=== PATIENT | female | born 1935 | race Caucasian/White ===

== ENCOUNTER 2018-01-17 19:47 | Inpatient (IN) | payer MEDICARE, OTHER ==
[~2018-01-17] VITALS: Ht 160 cm; Wt 55.3 kg
[~2018-01-17 19:47] MED LIST: ACETAMINOPHEN325 M1 PO; BACLOFEN10 MG PO; CINNAMON500 MG PO; CITALOPRAM HBR40 MG PO; COLACE100 MG PO; CRANBERRY TABL1 EACH PO; HUMULIN N100 UNITS/ SQ; HUMULIN R100 UNIT/2 SQ; HYDROXYZINE HCL25 MG PO; LEVOTHYROXINE100 MCG PO; MECLIZINE HCL12.5 MG PO; NEXIUM20 M1 PO; OCUVITE SOFTGE1 EACH PO; PANTOPRAZOLE SO40 MG PO; RAMIPRIL5 MG PO; SYSTANE LIQUID15 ML
[2018-01-17] MEDS ORDERED: SODIUM CHLORIDE 0.9% 500ML 500 ML IV ONE (20:15)
[2018-01-17] MEDS ORDERED: PANTOPRAZOLE 40 MG 10ML VIAL IV ONE (20:15)
[2018-01-17 20:25] LABS: BASOPHILS % 0.4 % (0.0-1.0); EOSINOPHILS # (AUTO) 0.1 (0.0-0.4); EOSINOPHILS % 1.2 % (0.0-6.0); HEMATOCRIT 39.6 % (34.2-44.1); HEMOGLOBIN 12.6 g/dL (12.0-16.0); LYMPHOCYTES # (AUTO) 3.4 (1.0-3.2); LYMPHOCYTES % 40.2 % (18.0-39.1); MEAN CORPUSCULAR HEMOGLOBIN 29.8 pg (28-32); MEAN CORPUSCULAR HGB CONC 31.8 g/dL (31-35); MEAN CORPUSCULAR VOLUME 93.6 fL (81-99); MONOCYTES # (AUTO) 0.8 (0.2-0.8); MONOCYTES % 8.9 % (4.4-11.3); NEUTROPHILS # (AUTO) 4.2 (2.1-6.9); NEUTROPHILS % 48.9 % (38.7-80.0); PLATELET COUNT 183 x10e3/uL (140-360); RED BLOOD COUNT 4.23 x10e6/uL (3.6-5.1); RED CELL DISTRIBUTION WIDTH 13.4 % (11.7-14.4)
[2018-01-17 20:30] LABS: BILIRUBIN,URINE NEGATIVE (NEGATIVE); CLARITY,URINE CLOUDY (CLEAR); COLOR,URINE YELLOW (YELLOW); KETONES,URINE NEGATIVE (NEGATIVE); LEUKOCYTE ESTERASE ,URINE 2+ (NEGATIVE); NITRITE,URINE POSITIVE (NEGATIVE); PROTEIN,URINE DIPSTICK NEGATIVE (NEGATIVE); URINE UROBILINOGEN 0.2 mg/dL (0.2 - 1)
[2018-01-17 20:34] LABS: INR 1.16; PROTHROMBIN TIME 13.9 seconds (11.9-14.5)
[2018-01-17 20:39] LABS: BACTERIA,URINE MANY /HPF
[2018-01-17 20:43] LABS: ALANINE AMINOTRANSFERASE 13 IU/L (0-55); ALBUMIN/GLOBULIN RATIO 0.8 (0.8-2.0); ALKALINE PHOSPHATASE 101 IU/L (40-150); ANION GAP 12.2 mmol/L (8-16); BLOOD UREA NITROGEN 13 mg/dL (7-26); BUN/CREATININE RATIO 18 (6-25); CALCIUM 8.5 mg/dL (8.4-10.2); CARBON DIOXIDE 28 mmol/L (22-29); CHLORIDE 107 mmol/L (98-107); CREATINE KINASE 308 IU/L (29-168); CREATININE, SERUM 0.72 mg/dL (0.57-1.11); EST GLOMERULAR FILTRATION RATE > 60 ML/MIN (60-); GLUCOSE 81 mg/dL (74-118); MAGNESIUM 2.7 MG/DL (1.3-2.1); SODIUM 142 mmol/L (136-145)
[2018-01-17 20:50] LABS: B-TYPE NATRIURETIC PEPTIDE2 131.7 pg/mL (0-100)
[2018-01-17 20:51] LABS: POTASSIUM 5.2 mmol/L (3.5-5.1)
--- NOTE | 2018-01-17 21:23 | Diagnostic Imaging Report ---
EXAM: CHEST SINGLE (PORTABLE), AP 1 view INDICATION: Unresponsive COMPARISON: AP view of the chest June 14, 2015 FINDINGS: LINES/TUBES: None LUNGS: No consolidations or edema. Bibasilar atelectasis. PLEURA: No effusions or pneumothorax. HEART AND MEDIASTINUM: Normal size and contour. BONES AND SOFT TISSUES: No acute findings. Surgical clips right upper quadrant of the abdomen. IMPRESSION: No acute thoracic abnormality. Signed by: Dr. Laura Storey M.D. on 01/17/2018 9:20 PM
[2018-01-17] MEDS: CEFTRIAXONE SOD 1 GM VIAL IV SCH (21:26)
--- NOTE | 2018-01-17 21:51 | Diagnostic Imaging Report ---
History:Unresponsive Comparison studies:None Technique: Axial images were obtained from the skull base to the vertex. Coronal and sagittal images reconstructed from the axial data. Intravenous contrast: None Findings: Scalp/skull: No abnormalities. Extra-axial spaces: No masses. No fluid collections. Brain sulci: Mildly prominent. Ventricles: Mild compensatory dilatation. No hydrocephalus. Parenchyma: Few hypodensities in the supratentorial white matter are small vessel ischemic changes. No masses, hemorrhage, acute or chronic cortical vascular insults. Sellar/suprasellar region: No abnormalities. Craniocervical junction: Patent foramen magnum. No Chiari one malformation. Incidental findings: Atherosclerotic calcifications in the carotid siphons and vertebral arteries . Partial opacification of the lower most left mastoid air cells. Bilateral cataract surgery changes. Impression: No acute abnormalities. Chronic findings: 1. Mild generalized volume loss. 2. Mild supratentorial white matter small vessel ischemic changes. Signed by: DR Edenilson Reid M.D. on 01/17/2018 9:48 PM
[2018-01-17 22:18] LABS: FREE THYROXINE INDEX 2.4607 (1.4-3.8); THYROID STIMULATING HORMONE 0.484 uIU/mL (0.350-4.940)
[2018-01-17] MEDS ORDERED: ONDANSETRON HCL INJ 2 MG/ML VIAL IV PRN (22:45)
[2018-01-17] MEDS: SODIUM CHLORIDE 0.9% 1000ML 1,000 ML IV SCH (23:05)
[2018-01-18] VITALS (9 sets, daily range): BP systolic 119–175; BP diastolic 54–74
[2018-01-18] MEDS ORDERED: LANTUS 3ML100 UNITS/ SC (03:02)
[2018-01-18] MEDS ORDERED: ULTRAM50 MG PO (03:02)
[2018-01-18] MEDS ORDERED: CARAFATE1 GM/10 ML PO (03:02)
[2018-01-18] MEDS ORDERED: ZOFRAN ODT4 MG SL (03:02)
[2018-01-18] MEDS ORDERED: ALLEGRA ALLERGY60 MG PO (03:02)
[2018-01-18] MEDS: INSULIN REGULAR, HUMAN 100 UNIT/1 ML 3ML VIAL SQ SCH ×5 (06:00→21:35)
[2018-01-18] MEDS: DEXTROSE 50% SYRINGE 50 ML IV PRN ×2 (06:22→15:44)
[2018-01-18 06:41] LABS: BASOPHILS % 0.5 % (0.0-1.0); EOSINOPHILS # (AUTO) 0.1 (0.0-0.4); EOSINOPHILS % 1.7 % (0.0-6.0); HEMATOCRIT 37.1 % (34.2-44.1); HEMOGLOBIN 11.6 g/dL (12.0-16.0); LYMPHOCYTES # (AUTO) 3.2 (1.0-3.2); LYMPHOCYTES % 39.8 % (18.0-39.1); MEAN CORPUSCULAR HEMOGLOBIN 30.4 pg (28-32); MEAN CORPUSCULAR HGB CONC 31.3 g/dL (31-35); MEAN CORPUSCULAR VOLUME 97.1 fL (81-99); MONOCYTES # (AUTO) 0.7 (0.2-0.8); MONOCYTES % 8.3 % (4.4-11.3); NEUTROPHILS % 48.7 % (38.7-80.0); PLATELET COUNT 174 x10e3/uL (140-360); RED BLOOD COUNT 3.82 x10e6/uL (3.6-5.1); RED CELL DISTRIBUTION WIDTH 13.3 % (11.7-14.4)
[2018-01-18 07:05] LABS: CREATINE KINASE MB 4.5 ng/mL (0-5.0)
[2018-01-18 07:21] LABS: ALANINE AMINOTRANSFERASE 9 IU/L (0-55); ALBUMIN 2.6 g/dL (3.5-5.0); ALKALINE PHOSPHATASE 80 IU/L (40-150); ANION GAP 9.7 mmol/L (8-16); BLOOD UREA NITROGEN 12 mg/dL (7-26); BUN/CREATININE RATIO 16 (6-25); CALCIUM 7.9 mg/dL (8.4-10.2); CARBON DIOXIDE 28 mmol/L (22-29); CHLORIDE 108 mmol/L (98-107); CREATININE, SERUM 0.73 mg/dL (0.57-1.11); EST GLOMERULAR FILTRATION RATE > 60 ML/MIN (60-); GLUCOSE 218 mg/dL (74-118); POTASSIUM 3.7 mmol/L (3.5-5.1); SODIUM 142 mmol/L (136-145)
[2018-01-18] MEDS: SODIUM CHLORIDE 0.9% 1000ML 1,000 ML IV SCH (08:27)
[2018-01-18] MEDS: CEFTRIAXONE SOD 1 GM VIAL IV SCH ×2 (08:28→21:35)
[2018-01-18] MEDS ORDERED: LORATADINE 10 MG TAB PO PRN (09:00)
[2018-01-18] MEDS ORDERED: SODIUM CHLORIDE 0.45% 1,000 ML IV SCH (09:00)
[2018-01-18] MEDS: DOCUSATE SODIUM 100 MG CAP PO SCH (09:00)
--- NOTE | 2018-01-18 10:00 | History and Physical ---
PCP: Ezequiel Lawton MD The patient is a [facility]itentiary patient at [facility]. CHIEF COMPLAINT: Altered mental status, lethargic. HISTORY OF PRESENT ILLNESS: Patient is an 82-year-old female, a resident of [facility] with multiple medical problems. Came in with basically altered mental status and lethargic. The patient does have a urinary tract infection. The patient is very confused, but she is arousable. Patient is currently comfortable and not in any distress. Not much history can be obtained. Per family, the patient has been confused for the past few days. She does not have a Juarez catheter at the facility. Baseline with diabetes type 2, hypertension and recurrent urinary tract infection. PAST MEDICAL HISTORY: Allergic rhinitis, chronic claudication, dysphagia, reflux, hypothyroidism, generalized weakness, ambulatory dysfunction, diabetes type 2, recurrent urinary tract infections, chronic pain syndrome, history of recurrent falls, osteoarthritis of the extremities. PAST SURGICAL HISTORY: Complete hysterectomy, cholecystectomy, bleeding ulcer surgery, neck surgery. REVIEW OF SYSTEMS: Not able to obtain. The patient is confused. PHYSICAL EXAMINATION VITAL SIGNS: Temperature is 98. Blood pressure 134/74. Pulse rate 53. Respirations 20. GENERAL: The patient is lethargic. HEENT: Normocephalic, atraumatic, anicteric. NECK: Supple grossly. PULMONARY: Diminished breath sounds without any wheezing. CARDIOVASCULAR: Regular rate and rhythm. ABDOMEN: Soft. Juarez catheter in place. Positive bowel sounds. No distention. EXTREMITIES: No cyanosis or edema. NEUROLOGIC: Encephalopathy, arousable, but no gross focal deficit. LABORATORY: Sodium 142, potassium 3.7, chloride 108, bicarb 28, BUN 12, creatinine 0.7, glucose 218. WBC is 8.1, hemoglobin 12, hematocrit 37, platelets 174. Liver enzymes are unremarkable. Urinalysis: Trace blood, positive nitrate, 2+ leukocyte esterase, WBC 20, many bacteria. Urine culture is pending. Blood culture is pending. Brain CT and chest x-ray: No changes. No acute findings. IMPRESSION 1. Sepsis with urinary tract infection and confusion. 2. Encephalopathy from infection of urinary tract infection. 3. Dehydration. 4. Diabetes with hyperglycemia. 5. Multiple baseline problems. Continue with IV fluids. IV antibiotics. Supportive measures. Check urine culture and blood culture. Resume home medications if the patient is able to swallow. Aspiration precautions. Turn the patient. Skin care. Nursing care. Job#: [id number]
[2018-01-18] MEDS: SUCRALFATE 1 GM/10 ML SUSP PO SCH ×3 (10:30→21:35)
[2018-01-18] MEDS: RAMIPRIL 2.5 MG CAP PO SCH (10:30)
[2018-01-18] MEDS ORDERED: DEXTROSE 5%/0.45% SOD CHL 1,000 ML IV ONE (15:39)
[2018-01-18] MEDS: DEXTROSE 5%/0.45% SOD CHL 1,000 ML IV SCH (15:44)
[2018-01-18 18:29] LABS: CREATINE KINASE MB 5.8 ng/mL (0-5.0)
[2018-01-18] MEDS: INSULIN DETEMIR 100 UNIT/ML PEN SQ SCH (21:00)
[2018-01-19 01:40] VITALS: BP 160/74
[2018-01-19] MEDS: DEXTROSE 5%/0.45% SOD CHL 1,000 ML IV SCH ×2 (01:53→13:33)
[2018-01-19 05:25] VITALS: BP 138/68
[2018-01-19] MEDS: INSULIN REGULAR, HUMAN 100 UNIT/1 ML 3ML VIAL SQ SCH ×3 (06:00→18:43)
[2018-01-19] MEDS ORDERED: RAMIPRIL 5 MG CAP PO SCH (06:00)
[2018-01-19] MEDS: LEVOTHYROXINE SODIUM 100 MCG TAB PO SCH (06:44)
[2018-01-19 06:47] LABS: ANION GAP 9.5 mmol/L (8-16); BLOOD UREA NITROGEN 8 mg/dL (7-26); BUN/CREATININE RATIO 12 (6-25); CALCIUM 8.1 mg/dL (8.4-10.2); CARBON DIOXIDE 29 mmol/L (22-29); CHLORIDE 105 mmol/L (98-107); CREATININE, SERUM 0.65 mg/dL (0.57-1.11); EST GLOMERULAR FILTRATION RATE > 60 ML/MIN (60-); GLUCOSE 114 mg/dL (74-118); POTASSIUM 3.5 mmol/L (3.5-5.1); SODIUM 140 mmol/L (136-145)
[2018-01-19 06:54] LABS: BASOPHILS % 0.3 % (0.0-1.0); EOSINOPHILS # (AUTO) 0.1 (0.0-0.4); EOSINOPHILS % 2.1 % (0.0-6.0); HEMATOCRIT 37.3 % (34.2-44.1); LYMPHOCYTES # (AUTO) 1.3 (1.0-3.2); LYMPHOCYTES % 19.1 % (18.0-39.1); MEAN CORPUSCULAR HEMOGLOBIN 30.3 pg (28-32); MEAN CORPUSCULAR HGB CONC 32.2 g/dL (31-35); MEAN CORPUSCULAR VOLUME 94.2 fL (81-99); MONOCYTES # (AUTO) 0.7 (0.2-0.8); NEUTROPHILS # (AUTO) 4.4 (2.1-6.9); NEUTROPHILS % 66.9 % (38.7-80.0); PLATELET COUNT 195 x10e3/uL (140-360); RED BLOOD COUNT 3.96 x10e6/uL (3.6-5.1)
[2018-01-19 07:13] LABS: MAGNESIUM 1.7 MG/DL (1.3-2.1); PHOSPHORUS 2.9 MG/DL (2.3-4.7)
[2018-01-19 07:18] LABS: FOLATE 12.5 ng/mL (7.0-15.4)
[2018-01-19 07:35] LABS: THYROID STIMULATING HORMONE 1.696 uIU/mL (0.350-4.940)
[2018-01-19 08:00] VITALS: BP 143/63
[2018-01-19] MEDS: CEFTRIAXONE SOD 1 GM VIAL IV SCH ×2 (08:06→21:23)
[2018-01-19] MEDS: SUCRALFATE 1 GM/10 ML SUSP PO SCH ×4 (08:06→21:23)
[2018-01-19] MEDS: DOCUSATE SODIUM 100 MG CAP PO SCH (08:06)
[2018-01-19] MEDS: RAMIPRIL 2.5 MG CAP PO SCH (08:06)
[2018-01-19] MEDS: CYANOCOBALAMIN INJ 1,000 MCG/ML VIAL IM SCH (09:42)
[2018-01-19 12:10] VITALS: BP 156/69
[2018-01-19 15:58] VITALS: BP 193/72
[2018-01-19] MEDS: ENOXAPARIN 30 MG/0.3 ML SYR SC SCH (17:56)
[2018-01-19 20:00] VITALS: BP 154/67
[2018-01-19] MEDS: TRAMADOL HCL 50 MG TAB PO PRN (21:09)
[2018-01-19] MEDS: INSULIN DETEMIR 100 UNIT/ML PEN SQ SCH (21:15)
[2018-01-19] MEDS: ACETAMINOPHEN 325 MG TAB PO PRN (23:30)
[2018-01-20] VITALS (7 sets, daily range): BP systolic 107–189; BP diastolic 52–83
[2018-01-20] MEDS: DEXTROSE 5%/0.45% SOD CHL 1,000 ML IV SCH ×2 (01:07→10:12)
[2018-01-20 05:30] LABS: BASOPHILS % 0.2 % (0.0-1.0); EOSINOPHILS % 0.6 % (0.0-6.0); HEMATOCRIT 35.4 % (34.2-44.1); HEMOGLOBIN 11.3 g/dL (12.0-16.0); LYMPHOCYTES # (AUTO) 1.2 (1.0-3.2); LYMPHOCYTES % 23.7 % (18.0-39.1); MEAN CORPUSCULAR HEMOGLOBIN 30.3 pg (28-32); MEAN CORPUSCULAR HGB CONC 31.9 g/dL (31-35); MEAN CORPUSCULAR VOLUME 94.9 fL (81-99); MONOCYTES % 20.2 % (4.4-11.3); NEUTROPHILS # (AUTO) 2.8 (2.1-6.9); NEUTROPHILS % 53.9 % (38.7-80.0); PLATELET COUNT 166 x10e3/uL (140-360); RED BLOOD COUNT 3.73 x10e6/uL (3.6-5.1); RED CELL DISTRIBUTION WIDTH 12.8 % (11.7-14.4)
[2018-01-20 05:55] LABS: ANION GAP 8.2 mmol/L (8-16); BLOOD UREA NITROGEN < 5 mg/dL (7-26); CARBON DIOXIDE 31 mmol/L (22-29); CHLORIDE 108 mmol/L (98-107); CREATININE, SERUM 0.65 mg/dL (0.57-1.11); EST GLOMERULAR FILTRATION RATE > 60 ML/MIN (60-); GLUCOSE 122 mg/dL (74-118); POTASSIUM 3.2 mmol/L (3.5-5.1); SODIUM 144 mmol/L (136-145)
[2018-01-20 05:56] LABS: BUN/CREATININE RATIO 8 (6-25)
[2018-01-20] MEDS: INSULIN REGULAR, HUMAN 100 UNIT/1 ML 3ML VIAL SQ SCH ×4 (06:00→18:00)
[2018-01-20] MEDS: LEVOTHYROXINE SODIUM 100 MCG TAB PO SCH (06:08)
[2018-01-20] MEDS: RAMIPRIL 2.5 MG CAP PO SCH (08:10)
[2018-01-20] MEDS: SUCRALFATE 1 GM/10 ML SUSP PO SCH ×4 (08:10→21:08)
[2018-01-20] MEDS: CYANOCOBALAMIN INJ 1,000 MCG/ML VIAL IM SCH (08:10)
[2018-01-20] MEDS: DOCUSATE SODIUM 100 MG CAP PO SCH (08:10)
[2018-01-20] MEDS: CEFTRIAXONE SOD 1 GM VIAL IV SCH ×2 (08:15→21:08)
[2018-01-20] MEDS ORDERED: POTASSIUM CHLORIDE 10 MEQ TABCR PO NR (09:00)
[2018-01-20] MEDS: ENOXAPARIN 30 MG/0.3 ML SYR SC SCH (17:47)
[2018-01-20] MEDS: INSULIN DETEMIR 100 UNIT/ML PEN SQ SCH (21:00)
[2018-01-20] MEDS: TRAMADOL HCL 50 MG TAB PO PRN (21:46)
[2018-01-20] MEDS: ACETAMINOPHEN 325 MG TAB PO PRN (23:40)
[2018-01-21] VITALS: BP 174/74
[2018-01-21] MEDS: INSULIN REGULAR, HUMAN 100 UNIT/1 ML 3ML VIAL SQ SCH ×3 (00:20→12:00)
[2018-01-21 04:00] VITALS: BP 166/73
[2018-01-21] MEDS: DEXTROSE 5%/0.45% SOD CHL 1,000 ML IV SCH (04:31)
[2018-01-21 05:48] LABS: ANION GAP 10.1 mmol/L (8-16); BLOOD UREA NITROGEN 5 mg/dL (7-26); BUN/CREATININE RATIO 8 (6-25); CARBON DIOXIDE 30 mmol/L (22-29); CHLORIDE 107 mmol/L (98-107); CREATININE, SERUM 0.65 mg/dL (0.57-1.11); EST GLOMERULAR FILTRATION RATE > 60 ML/MIN (60-); GLUCOSE 94 mg/dL (74-118); MAGNESIUM 1.8 MG/DL (1.3-2.1); POTASSIUM 3.1 mmol/L (3.5-5.1); SODIUM 144 mmol/L (136-145)
[2018-01-21 06:20] LABS: PHOSPHORUS 2.4 MG/DL (2.3-4.7)
[2018-01-21] MEDS: LEVOTHYROXINE SODIUM 100 MCG TAB PO SCH (06:20)
[2018-01-21 08:00] VITALS: BP 180/86
[2018-01-21] MEDS: RAMIPRIL 2.5 MG CAP PO SCH (08:26)
[2018-01-21] MEDS: CEFTRIAXONE SOD 1 GM VIAL IV SCH (08:26)
[2018-01-21] MEDS: DOCUSATE SODIUM 100 MG CAP PO SCH (08:26)
[2018-01-21] MEDS: CYANOCOBALAMIN INJ 1,000 MCG/ML VIAL IM SCH (08:26)
[2018-01-21] MEDS: SUCRALFATE 1 GM/10 ML SUSP PO SCH ×2 (08:26→11:30)
[2018-01-21 08:53] VITALS: BP 180/86
[2018-01-21] MEDS ORDERED: POTASSIUM CHLORIDE 10 MEQ TABCR PO NR (09:45)
[2018-01-21] MEDS ORDERED: POTASSIUM PHOSPHATE 20 MM in SODIUM CHLORIDE 0.9% 250ML 250 ML IV ONE (10:00)
[2018-01-21] MEDS ORDERED: rocephin IV (10:05)
--- NOTE | 2018-01-21 10:15 | Discharge Summary ---
PRIMARY CARE PHYSICIAN: Ezequiel Lawton MD FINAL DIAGNOSES 1. Sepsis with urinary tract infection and confusion associated with encephalopathy from infection. 2. Acute delirium secondary to above on baseline dementia. 3. Status post dehydration. 4. Baseline diabetes type 2 and hypoglycemia. 5. Multiple chronic baseline problems including ambulatory dysfunction secondary to osteoarthritis and degenerative lumbar spine disease. SUMMARY: Patient is an 82-year-old female, a resident of a senior care, who came in with confusion, lethargic, difficult to arouse associated with delirium and encephalopathic due to basically urinary tract infection. The patient had a urine culture that grew out to be Providencia stuartii. It is sensitive to Azactam, ceftazidime, Rocephin, cefepime but resistant to cefuroxime, Cipro, Levaquin, and Macrodantin. The patient is on Rocephin 1 gram q.12. On admission, the patient was dehydrated. She did have some loose stool, but much improved. Potassium was 5.2 on admission. Her blood sugar was stable at 81. The patient was not eating at the time but now she is doing much better. She is stable. She has been eating. TSH is 0.48. Urinalysis shows significant 2+ leukocyte esterase, many bacteria, positive nitrate, cloudy urine. She did have urinary retention. Juarez catheter was placed and much improved now. The urinary bladder scan was only 60 mL after the Juaerz catheter was removed. Patient doing much better. She will have potassium phosphate replaced. She will go back to the senior care with 7 days of Rocephin 1 g daily and B12 injection. Her B12 level was very significantly low as well. Her level was 91. Patient has received 1,000 mcg IM daily for 3 days. Recommend every 2 weeks for 3 doses and then every month. At this time the patient is stable for discharge. Please review the medication reconciliation and the instructions that were given. Job#: [id number]
[2018-01-21] MEDS: ACETAMINOPHEN 325 MG TAB PO PRN (10:28)
[2018-01-21 12:00] VITALS: BP 176/76
[2018-01-21] MEDS: TRAMADOL HCL 50 MG TAB PO PRN (14:01)
== END 2018-01-21 16:13 | DRG 871 ==
LOC: ER 19:47 → ERHOLD 22:37 → MED/SURG 01-18 00:25
PROVIDERS: ADMIT Internal Medicine; ATTEND Internal Medicine
DX: A41.9 Sepsis, unspecified organism (principal); G93.41 Metabolic encephalopathy; N39.0 Urinary tract infection, site not specified; F05 Delirium due to known physiological condition; B96.89 Other specified bacterial agents as the cause of diseases classified elsewhere; F03.90 Unspecified dementia, unspecified severity, without behavioral disturbance, psychotic disturbance, mood disturbance, and anxiety; E86.0 Dehydration; E11.65 Type 2 diabetes mellitus with hyperglycemia; I10 Essential (primary) hypertension; E03.9 Hypothyroidism, unspecified; R26.9 Unspecified abnormalities of gait and mobility; M47.816 Spondylosis without myelopathy or radiculopathy, lumbar region; K21.9 Gastro-esophageal reflux disease without esophagitis; E87.6 Hypokalemia; E53.8 Deficiency of other specified B group vitamins; G89.4 Chronic pain syndrome; J30.9 Allergic rhinitis, unspecified; F41.8 Other specified anxiety disorders; Z79.4 Long term (current) use of insulin; Z88.2 Allergy status to sulfonamides; Z91.041 Radiographic dye allergy status; Z88.0 Allergy status to penicillin; Z91.013 Allergy to seafood
CPT/HCPCS: 36415; 51700; 70450; 71045; 80048; 80053; 81001; 82140; 82550; 82553; 82607; 82746; 82948; 83036; 83605; 83735; 83880; 84100; 84436; 84443; 84479; 84484; 85025; 85610; 85730; 87040; 87086; 87186; 93005; 96361; 99284; J0696; J1650; J3420; J7030; J7040; J7050; J7799

== ENCOUNTER 2018-07-23 16:35 | Inpatient (IN) | payer MEDICARE, OTHER ==
[~2018-07-23] VITALS: Ht 152.4 cm; Wt 61.2 kg
[~2018-07-23 16:35] MED LIST changes: +ALLEGRA ALLERGY60 MG PO; +CARAFATE1 GM/10 ML PO; +LANTUS 3ML100 UNITS/ SC; +ULTRAM50 MG PO; +ZOFRAN ODT4 MG SL; +rocephin IV
[2018-07-23 17:19] LABS: BASOPHILS % 0.2 % (0.0-1.0); EOSINOPHILS # (AUTO) 0.1 (0.0-0.4); EOSINOPHILS % 0.4 % (0.0-6.0); HEMATOCRIT 37.4 % (34.2-44.1); HEMOGLOBIN 11.9 g/dL (12.0-16.0); LYMPHOCYTES # (AUTO) 2.9 (1.0-3.2); LYMPHOCYTES % 14.4 % (18.0-39.1); MEAN CORPUSCULAR HGB CONC 31.8 g/dL (31-35); MEAN CORPUSCULAR VOLUME 94.2 fL (81-99); MONOCYTES # (AUTO) 1.2 (0.2-0.8); MONOCYTES % 5.8 % (4.4-11.3); NEUTROPHILS # (AUTO) 15.8 (2.1-6.9); NEUTROPHILS % 78.7 % (38.7-80.0); PLATELET COUNT 218 x10e3/uL (140-360); RED BLOOD COUNT 3.97 x10e6/uL (3.6-5.1)
[2018-07-23 17:24] LABS: INR 1.3; PROTHROMBIN TIME 17.3 seconds (11.9-14.5)
[2018-07-23 17:25] LABS: PARTIAL THROMBOPLASTIN TIME 71.2 seconds (23.8-35.5)
[2018-07-23 17:31] LABS: ALBUMIN 2.5 g/dL (3.5-5.0); ALBUMIN/GLOBULIN RATIO 0.7 (0.8-2.0); ALKALINE PHOSPHATASE 76 IU/L (40-150); ANION GAP 12.5 mmol/L (8-16); BLOOD UREA NITROGEN 15 mg/dL (7-26); BUN/CREATININE RATIO 20 (6-25); CALCIUM 7.9 mg/dL (8.4-10.2); CARBON DIOXIDE 27 mmol/L (22-29); CHLORIDE 104 mmol/L (98-107); CREATININE, SERUM 0.76 mg/dL (0.57-1.11); EST GLOMERULAR FILTRATION RATE > 60 ML/MIN (60-); GLUCOSE 98 mg/dL (74-118); POTASSIUM 3.5 mmol/L (3.5-5.1); SODIUM 140 mmol/L (136-145)
[2018-07-23 17:37] LABS: ALANINE AMINOTRANSFERASE < 6 IU/L (0-55)
[2018-07-23 17:46] LABS: MAGNESIUM 2.2 MG/DL (1.3-2.1)
[2018-07-23] MEDS ORDERED: ALBUTEROL SULF 0.083% NEB SOLN 3 ML NEB NEB STA (17:58)
[2018-07-23] MEDS ORDERED: IPRATROPIUM BROMIDE 0.02% 2.5 ML NEB NEB ONE (18:00)
[2018-07-23 18:10] LABS: BILIRUBIN,URINE NEGATIVE (NEGATIVE); CLARITY,URINE HAZY (CLEAR); COLOR,URINE YELLOW (YELLOW); KETONES,URINE NEGATIVE (NEGATIVE); LEUKOCYTE ESTERASE ,URINE 2+ (NEGATIVE); NITRITE,URINE POSITIVE (NEGATIVE); PROTEIN,URINE DIPSTICK TRACE (NEGATIVE); URINE UROBILINOGEN 0.2 mg/dL (0.2 - 1)
--- NOTE | 2018-07-23 18:11 | Diagnostic Imaging Report ---
EXAMINATION: CHEST SINGLE (PORTABLE) COMPARISON: Chest x-ray 01/17/2018 INDICATION: ^SEPSIS ^[id number] ^1721 ^Y DISCUSSION: Frontal view of the chest obtained at 1746 hours. HEART AND MEDIASTINUM: The cardiomediastinal silhouette is unremarkable. LINES: None. LUNGS: Mildly hyperinflated. No mass or infiltrate. No pulmonary edema PLEURA: No pleural effusion or pneumothorax. BONES AND SOFT TISSUES: No focal osseous lesion. The soft tissues are normal. IMPRESSION: Mild pulmonary hyperinflation. No acute cardiopulmonary process. Signed by: Dr. Marjorie Pearson MD on 07/23/2018 6:08 PM
[2018-07-23 18:12] LABS: WBC,URINE (MAN) >50 /HPF (0-5)
[2018-07-23 18:13] LABS: AMORPHOUS SEDIMENT,URINE FEW (FEW); BACTERIA,URINE MANY /HPF; EPITHELIAL CELLS,URINE FEW /LPF; MUCUS,URINE MODERATE (RARE)
--- NOTE | 2018-07-23 19:09 | NUR ---
Walking rounds with ELISHA Corbett.
--- NOTE | 2018-07-23 19:31 | NUR ---
I spoke with Dr Lawton for admission
[2018-07-23] MEDS ORDERED: SODIUM CHLORIDE 0.9% 1000ML 1,000 ML IV ONE (20:00)
[2018-07-23] MEDS ORDERED: IPRATROPIUM BROMIDE 0.02% 2.5 ML NEB NEB PRN (20:00)
[2018-07-23] MEDS ORDERED: DEXTROSE 50% SYRINGE 50 ML IV PRN (20:00)
[2018-07-23] MEDS ORDERED: ONDANSETRON HCL INJ 2MG/ML 2ML 2 MG/ML VIAL IV PRN (20:00)
[2018-07-23 21:14] VITALS: BP 148/62
[2018-07-23 21:30] VITALS: BP 148/62
[2018-07-23] MEDS: CEFTRIAXONE SOD 1 GM/NS 50 ML 50 ML IV SCH (21:31)
[2018-07-23] MEDS: INSULIN LISPRO 100 UNIT/1 ML 3ML VIAL SQ SCH (21:31)
--- NOTE | 2018-07-23 22:52 | History and Physical ---
I was called by the patient's [facility] this afternoon at approximately 3:30 and advised that the patient had been sick all day with fever and malaise. The patient has had a history of severe urosepsis and was referred to the emergency room. There, she was seen by Dr. Tolentino, emergency room physician, who called regarding leukemoid reaction and fever, urinary tract infection and pulmonary congestion. The patient denies headache or visual disturbance. She denies sore throat. No chest pain. She has had a cough all day according to her family, dry cough. No chest pain as mentioned. The patient denies nausea, vomiting, or diarrhea. She notes some dysuria for 2 days. The patient is not ambulatory. PAST MEDICAL HISTORY: History has also included allergic rhinitis, spinal stenosis with chronic bilateral leg weakness, GERD, hypothyroidism, diabetes type 2, and degenerative joint disease. SURGICAL HISTORY: Hysterectomy, cholecystectomy, surgery for bleeding ulcer, surgery for spinal stenosis of lumbar spine. FAMILY HISTORY: Denies contributory family history. ALLERGIES: PER OLD RECORD INCLUDE PENICILLIN, SULFA, AND IODINE. THE PATIENT HAS TOLERATED CEPHALOSPORIN PREVIOUSLY PER ER REPORT. The patient relates she has had prior neck surgery. No tobacco or alcohol. See also multiple prior stays here. The patient was given Tylenol prior to referral here. When I was called at 3:30 this afternoon, the patient's fever was 100.6 according to the detention. PHYSICAL EXAMINATION VITAL SIGNS: Currently pulse is 63 and regular; respiratory rate is 20, not labored; blood pressure 134/64 on arrival; O2 saturation has varied in the ER from 91 to 100. HEENT: No icterus or pallor. Pupils are round and reactive. EOMs full. Back of throat poorly seen. NECK: Supple. Carotids are palpable. No palpable goiter. PULMONARY: Auscultation generalized with rales. CARDIAC: Obscure cardiac sounds, S1 and S2 soft. ABDOMEN: Soft. Bowel sounds are normal. Old scars. No suprapubic or flank tenderness. EXTREMITIES: Free of edema, clubbing, or cyanosis. Peripheral pulses are present. Strength is very poor in the lower extremities with reduced DTRs. LABS: White count is 20,000, hemoglobin is 11.9 with normal indices. Platelet count normal at 218,000. PTT elevated at 71. INR is 1.3. Urinalysis reveals greater than 50 white cells per high power field. Dipstick is positive for nitrites. Positive for leukocyte esterase. Influenza type A and B antigens are negative. Cardiac enzymes are normal. Brain natriuretic peptide 168 (less than 100 is normal). Albumin 2.5, globulin 3.6. Urine and blood cultures are being sent. Chest x-ray; impression, mild pulmonary hyperinflation per Dr. Marjorie Pearson, radiologist here. CURRENT IMPRESSION 1. Acute febrile illness. 2. Urinary tract infection. 3. History of urosepsis previously. 4. Acute bronchitis. 5. Pulmonary hyperinflation. Multiple chronic medical illnesses as mentioned above including spinal stenosis, diabetes mellitus (admission glucose 98), allergic rhinitis, GERD, hypothyroidism, degenerative joint disease. Current plans are to assure hydration. Control blood pressure and diabetes. Treat the patient's bronchitis and urinary tract infection. See also initial orders. Further treatment pending database and course. Job#: [id number] GAGAN
[2018-07-23] MEDS: AZITHROMYCIN 500MG/NS 250 ML 250 ML IV SCH (23:00)
--- NOTE | 2018-07-23 23:00 | NUR ---
Patient in bed. AAOx2-3. Continues pulse ox at 92-93% on 2-3L n/c. Patient in no noted distress or discomfort. IV intact. Patient depend changed and cleaned. Patient given snack. Consumed 100% of meal. Continue monitor.
[2018-07-24] VITALS (16 sets, daily range): BP systolic 88–159; BP diastolic 26–81
--- NOTE | 2018-07-24 01:00 | NUR ---
Patient pulled out IV. Pressure dressing applied. Restarted 22G to left FA. Patient tolerated well.
[2018-07-24 02:46] LABS: CREATINE KINASE MB 1.2 ng/mL (0-5.0)
--- NOTE | 2018-07-24 04:00 | NUR ---
Patient resting quitly with no noted c/o at this time.
[2018-07-24 06:37] LABS: BASOPHILS % 0.1 % (0.0-1.0); EOSINOPHILS # (AUTO) 0.1 (0.0-0.4); HEMATOCRIT 35.1 % (34.2-44.1); HEMOGLOBIN 10.9 g/dL (12.0-16.0); LYMPHOCYTES # (AUTO) 1.3 (1.0-3.2); LYMPHOCYTES % 8.9 % (18.0-39.1); MEAN CORPUSCULAR HEMOGLOBIN 29.8 pg (28-32); MEAN CORPUSCULAR HGB CONC 31.1 g/dL (31-35); MEAN CORPUSCULAR VOLUME 95.9 fL (81-99); MONOCYTES % 6.7 % (4.4-11.3); NEUTROPHILS # (AUTO) 11.7 (2.1-6.9); NEUTROPHILS % 82.7 % (38.7-80.0); PLATELET COUNT 192 x10e3/uL (140-360); RED BLOOD COUNT 3.66 x10e6/uL (3.6-5.1)
[2018-07-24 07:07] LABS: ALANINE AMINOTRANSFERASE 7 IU/L (0-55); ALBUMIN 2.1 g/dL (3.5-5.0); ALBUMIN/GLOBULIN RATIO 0.8 (0.8-2.0); ALKALINE PHOSPHATASE 68 IU/L (40-150); ANION GAP 9.3 mmol/L (8-16); BLOOD UREA NITROGEN 14 mg/dL (7-26); BUN/CREATININE RATIO 23 (6-25); CARBON DIOXIDE 26 mmol/L (22-29); CHLORIDE 109 mmol/L (98-107); CREATININE, SERUM 0.62 mg/dL (0.57-1.11); EST GLOMERULAR FILTRATION RATE > 60 ML/MIN (60-); GLUCOSE 116 mg/dL (74-118); POTASSIUM 3.3 mmol/L (3.5-5.1); SODIUM 141 mmol/L (136-145)
[2018-07-24 07:18] LABS: CALCIUM 6.7 mg/dL (8.4-10.2)
[2018-07-24] MEDS: INSULIN LISPRO 100 UNIT/1 ML 3ML VIAL SQ SCH ×4 (07:30→21:25)
--- NOTE | 2018-07-24 08:02 | NUR ---
PT CRITICAL LAB FOR CAECUM 6.7 AND POTASSIUM 3.[address] LOPEZ NO NEW ORDERS AT THIS TIME. RESP THERAPY NOTIFIED OF PT 02 LEVEL 88 AWAITING .
[2018-07-24] MEDS: ALBUTEROL SULF 0.083% NEB SOLN 3 ML NEB NEB PRN ×2 (08:08→21:35)
--- NOTE | 2018-07-24 08:29 | NUR ---
RESP THERAPY ADMINISTERED BREATHING TX, 02 SAT 97%.
[2018-07-24] MEDS: CEFTRIAXONE SOD 1 GM/NS 50 ML 50 ML IV SCH ×2 (09:51→21:25)
[2018-07-24] MEDS: AZITHROMYCIN 500MG/NS 250 ML 250 ML IV SCH (10:20)
--- NOTE | 2018-07-24 10:26 | NUR ---
PT NOTED ON VENTURI MASK AT 15% PLACED BY RESP THERAPIST, DR LOPEZ NOTIFIED, ORDERS FOR A CONSULT WITH DR. PARRA, STAT ABGS, STAT SOLUCORTEL 100MG IV AND POTASSIUM 10MEQ PO NOW.
--- NOTE | 2018-07-24 10:43 | NUR ---
DR STOKES CALLED FOR THE CONSULT AND WANTS PT TRANSFERRED TO ICU. ABGS RESULTS PENDING, PHARMACY TO VERIFIED MEDICATIONS.
[2018-07-24] MEDS ORDERED: HYDROCORTISONE SOD SUCCINATE 100 MG VIAL IV ONE (11:00)
[2018-07-24] MEDS ORDERED: POTASSIUM CHLORIDE 10MEQ EA PO ONE (11:00)
[2018-07-24] MEDS: RAMIPRIL 2.5 MG CAP PO SCH (11:08)
[2018-07-24 11:11] LABS: ABG HCO3 25 mmol/L (23-28); ABG PCO2 43 mmHg (41-51); ABG PH 7.38 (7.31-7.41); ABG PO2 72 mmHg (80-105)
--- NOTE | 2018-07-24 11:53 | NUR ---
ABG RESULTS REPORTED TO DR STOKES ORDERS FOR PT TO STILL BE TRANSFERRED TO ICU. REPORT CALLED IN TO NURSE WHO WILL BE TAKING CARE FOR PT IN ROOM 194. DR LOPEZ ALSO UPDATED OF PT STATUS AND ABG RESULTS
--- NOTE | 2018-07-24 12:14 | NUR ---
transported patient to ICU via bed, no imcu bed available at this time. Patient monitored on continuous pulse ox
[2018-07-24] MEDS ORDERED: FUROSEMIDE INJ 10 MG/ML 2 ML VIAL IV ONE (13:00)
--- NOTE | 2018-07-24 14:40 | Consultation ---
DATE OF CONSULTATION: July 24, 2018 PULMONARY CONSULTATION REASON FOR THE CONSULT: Shortness of breath. HPI: Ms. Barlow is an 82-year-old female. She was admitted under Dr. Lawton's service for fever and malaise. I was called by the RN because patient was hypoxic and patient was desaturating to 84% on 2 liters. Patient was put on 7 or 8 liters. An ABG was done on 50% Ventimask with a pO2 of 72 and pCO2 of 43. Patient reports that she is having some difficulty taking deep breaths. She is awake, alert, oriented, and following commands. She has never smoked in her life. I have reviewed her chest x-ray. It is not showing any evidence of infiltrates. Patient is mostly wheelchair bound and does not walk much according to what she told me. REVIEW OF SYSTEMS GENERAL: Denies any fever or chills. HEAD: Denies any head trauma. ENT: Denies any earache. CVS: Denies any chest pain. RESPIRATORY: Shortness of breath. GI: Denies any nausea or vomiting. MUSCULOSKELETAL: Denies any arthralgias or myalgias. NEURO: Denies any focal weakness. The rest of the review systems is negative except as in HPI. PAST MEDICAL HISTORY: Per the chart, history of hypertension, hypothyroidism, type 2 diabetes. She is mostly in the wheelchair. At home, patient is on Ramipril and also has hypothyroidism. PAST SURGICAL HISTORY: Hysterectomy, cholecystectomy, surgery for spinal stenosis. ALLERGIES: PENICILLIN, SULFA, IODINE. PHYSICAL EXAMINATION VITAL SIGNS: Temperature 97.4, pulse of 56, blood pressure 156/67, 148/62. Respiratory rate is 18 to 20 per minute. O2 sat, I checked myself in the room on 3 liters, she was saturating 93%. She was on 7 liters when I went into the room. GENERAL: She does not appear to be in distress. She is awake and alert and following commands. HEENT: Head atraumatic, normocephalic. Oral mucosa is dry. NECK: Supple. No JVD. Thyroid not enlarged. CHEST: Patient has crackles on the bases but no wheezing. HEART: S1, S2 audible. ABDOMEN: Soft, nontender. EXTREMITIES: No clubbing, cyanosis, or edema. NEUROLOGICAL: She is awake and alert. LABS: Sodium 141, potassium 3.3, chloride 109, BUN 14, creatinine 0.62, calcium was 6.7, albumin is 2.1 and 2.5. Troponin 0.067. Her BNP, when she came in, was 168. Chest x-ray was from 07/23/2018 and showing mild congestion and some hilar engorgement. There is no new x-ray. Urinalysis which was done when she came in showed many bacteria, more than 50 wbc's. Blood cultures have been negative. ASSESSMENT/PLAN: Ms. Barlow is an 82-year-old female. She presented to the emergency room with generalized malaise, fever. She lives at [facility]. She is in the wheelchair. I was consulted for hypoxia. Patient's ABG was showing PaO2 of 72, this was done 50% Ventimask and had significant AA gradient. However, she was not hypercapnic. She is awake and alert and no mental status changes. She has no renal failure. Leukocytosis is resolving with IV Rocephin. She was on IV fluids, IV normal saline at 75 mL an hour since she has been in the hospital. Her BNP was in 160s when she came in. IMPRESSION 1. Hypoxia could be due to fluid overload as patient was on IV fluids. I will do a chest x-ray, and we will give a dose of Lasix and follow. However, patient has history of being bedbound and in the chair, so we will consider ruling out pulmonary embolism. We will do a computed tomography chest with contrast. 2. Urinary tract infection. Patient is already on the antibiotics. 3. Hypocalcemia. Albumin is 2.1, so she is somewhat hypocalcemic, currently stable from that standpoint. 4. History of hypertension, currently seems to be somewhat uncontrolled. Patient is on Ramipril. 5. Move the patient to IM. Since there is no bed in [facility], she will be ending up in ICU. We will follow her closely. Critical care time spent, 50 minutes. Job#: [id number] LAURE
[2018-07-24] MEDS: SUCRALFATE 1 GM/10 ML SUSP PO SCH ×2 (17:03→22:30)
--- NOTE | 2018-07-24 17:21 | NUR ---
CT not done due to iodine allergy, Dr Ba is aware.
[2018-07-24] MEDS ORDERED: HEPARIN SOD (PORCINE) 1000 UNIT/ML SDV IV ONE (21:00)
[2018-07-24] MEDS: VANCOMYCIN 250MG/5ML ORAL SOLN PO SCH (21:25)
[2018-07-24] MEDS ORDERED: HEPARIN SOD (PORCINE) 5,000 UNIT/ML VIAL ONE (21:25)
[2018-07-25] VITALS (10 sets, daily range): BP systolic 93–150; BP diastolic 35–66
[2018-07-25] MEDS: VANCOMYCIN 250MG/5ML ORAL SOLN PO SCH ×4 (00:55→17:41)
[2018-07-25 04:54] LABS: BASOPHILS % 0.2 % (0.0-1.0); EOSINOPHILS # (AUTO) 0.1 (0.0-0.4); EOSINOPHILS % 0.6 % (0.0-6.0); HEMATOCRIT 35.7 % (34.2-44.1); LYMPHOCYTES # (AUTO) 2.7 (1.0-3.2); LYMPHOCYTES % 21.9 % (18.0-39.1); MEAN CORPUSCULAR HEMOGLOBIN 29.3 pg (28-32); MEAN CORPUSCULAR HGB CONC 30.8 g/dL (31-35); MEAN CORPUSCULAR VOLUME 95.2 fL (81-99); MONOCYTES # (AUTO) 0.9 (0.2-0.8); MONOCYTES % 7.5 % (4.4-11.3); NEUTROPHILS # (AUTO) 8.5 (2.1-6.9); NEUTROPHILS % 68.7 % (38.7-80.0); PLATELET COUNT 213 x10e3/uL (140-360); RED BLOOD COUNT 3.75 x10e6/uL (3.6-5.1); RED CELL DISTRIBUTION WIDTH 13.9 % (11.7-14.4)
[2018-07-25 05:12] LABS: ANION GAP 11.3 mmol/L (8-16); BLOOD UREA NITROGEN 15 mg/dL (7-26); BUN/CREATININE RATIO 21 (6-25); CARBON DIOXIDE 28 mmol/L (22-29); CHLORIDE 108 mmol/L (98-107); CREATININE, SERUM 0.72 mg/dL (0.57-1.11); EST GLOMERULAR FILTRATION RATE > 60 ML/MIN (60-); GLUCOSE 92 mg/dL (74-118); POTASSIUM 3.3 mmol/L (3.5-5.1); SODIUM 144 mmol/L (136-145)
[2018-07-25 05:15] LABS: CALCIUM 7.9 mg/dL (8.4-10.2)
[2018-07-25] MEDS: LEVOTHYROXINE SODIUM 100 MCG TAB PO SCH (05:35)
[2018-07-25] MEDS: INSULIN LISPRO 100 UNIT/1 ML 3ML VIAL SQ SCH ×4 (07:30→22:15)
[2018-07-25] MEDS ORDERED: DOCUSATE SODIUM 100 MG CAP PO SCH (09:00)
[2018-07-25] MEDS ORDERED: SODIUM CHLORIDE 0.9% 250ML 250 ML ONE (09:45)
[2018-07-25] MEDS: RAMIPRIL 2.5 MG CAP PO SCH (09:46)
[2018-07-25] MEDS: CEFTRIAXONE SOD 1 GM/NS 50 ML 50 ML IV SCH ×2 (09:46→22:15)
[2018-07-25] MEDS: SUCRALFATE 1 GM/10 ML SUSP PO SCH ×4 (09:46→22:15)
[2018-07-25] MEDS: AZITHROMYCIN 500MG/NS 250 ML 250 ML IV SCH (09:46)
[2018-07-25] MEDS ORDERED: POTASSIUM CHLORIDE 20 MEQ TAB CR PO ONE (10:00)
--- NOTE | 2018-07-25 10:06 | Diagnostic Imaging Report ---
EXAMINATION: CHEST SINGLE (PORTABLE) COMPARISON: Chest x-ray 07/23/2018 INDICATION: ^sob ^[id number] ^0938 DISCUSSION: Frontal view of the chest obtained at 0900 hours. The patient's chin overlies the upper chest. HEART AND MEDIASTINUM: Stable mild cardiomegaly and aortic ectasia LINES: None. LUNGS: The lungs are diffusely hyperinflated consistent with COPD. There is new right basilar airspace disease. Streaky left basilar airspace opacity has developed. Vascular markings are prominent. PLEURA: No pleural effusion or pneumothorax. BONES AND SOFT TISSUES: No focal osseous lesion. The soft tissues are normal. IMPRESSION: 1. New right basilar airspace opacity suggestive of pneumonia. Left basilar airspace opacity may be the result of atelectasis or pneumonia. 2. Cardiomegaly and mild vascular congestion. Signed by: Dr. Marjorie Pearson MD on 07/25/2018 10:02 AM
--- NOTE | 2018-07-25 11:16 | NUR ---
WOUND CARE CONSULTATION. 82 YEAR OLD FEMALE ADMITTED TO [facility] WITH DX OF BRONCHITIS, HEAD TO TOE SKIN ASSESSMENT PERFORMED TODAY. PT PRESENTS WITH A [id number] STAGE I TO BILATERAL BUTTOCKS AND SACRUM THERE ARE NO OTHER AREAS OF CONCERN. NO S/S OF INFECTION PRESENT AT THIS TIME. PT EDUCATED ON PLAN OF CARE, TREATMENT AND PRESSURE RELIEF TO THE AFFECTED AREA. LABS: WBC: 12.32 GLUCOSE: 104 ALB: 2.1 RECOMMENDATIONS: APPLY VENELEX OINTMENT BID TO BILATERAL BUTTOCKS AND SACRUM AND COVER WITH FOAM DRESSING. TURN PT EVERY 2 HOURS AND PRN. CONTINUE WITH BILATERAL HEEL PROTECTORS AND ADD PILLOW SUSPENSIONS. CONTINUE WITH ALTERNATING LOW AIR LOSS MATTRESS. THANKS FOR THIS CONSULTATION. Addendum: 07/25/18 at 1121 by Mariella Ornelas RN Amended: Links added.
[2018-07-25] MEDS ORDERED: LORAZEPAM 0.5 MG TAB PO ONE (14:00)
--- NOTE | 2018-07-25 15:07 | Diagnostic Imaging Report ---
Ventilation/perfusion lung scan Clinical Information: 82 F with hypoxia Comparison: Chest radiograph 07/25/2018 Discussion: Xenon-133 gas 10.1 mCi was administered via inhalation. Dynamic images of the lungs in the posterior projection were obtained through single breath, equilibrium, and washout phases. Distribution of tracer activity is mildly irregular throughout the lungs. There are no segmental ventilatory defects. Washout of tracer is diffusely delayed with diffuse air trapping. Perfusion images of the lungs were obtained in multiple projections following intravenous administration of approximately 5.2 mCi of Tc-99m MAA. Distribution of tracer is irregular throughout the lungs. The contours of the lungs are well demarcated. There are no segmental perfusion defects of any size. The cardiomediastinal silhouette is unremarkable. Impression: Scan findings represent a VERY LOW probability for acute pulmonary embolic disease based on the PIOPED II criteria. Scan evidence of obstructive lung disease. Signed by: Dr. Dennise House M.D. on 07/25/2018 3:03 PM
--- NOTE | 2018-07-25 16:08 | NUR ---
Nutrition Screen Note RD Recommendation for Physician: -Continue ADA diet as ordered -Rec MVi w/ minerals and vitamin C to support wound healing -Consider Glucerna if PO <50% consistently -Encourage PO and hydration Plan of Care: RD following, monitoring for tolerance and adequacy Nutrition reason for involvement: RN Consult no reason stated Primary Diagnose(s): 1.Hypoxia could be due to fluid overload. 2.Urinary tract infection on abx 3.Hypocalcemia. PMH: HTN, allergic rhinitis, spinal stenosis with chronic bilateral leg weakness, GERD, hypothyroidism, diabetes type 2, and degenerative joint disease. Ht: 63in Wt:131.5lb BMI: 23.3kg/m2 IBW: 115lb RD Assessment: (07/25/2018) Chart reviewed. Labs and meds reviewed. 82yo F, who is admitted for fever and malaise. Per wound care note, pt has stage I pressure wound to bilateral buttocks and sacrum. Visited pt in the room. Pt did well on swallow study; [employer] rec regular diet texture and thin liquid. Pt reported appetite being the same. Pt ate and drank ok while at the long-term. No GI complains noted. LBM 1/6. Pt denies any swallowing or chewing difficulty. No recent weight loss reported. Communicated RD rec to BOZENA Ward. Will continue to monitor and follow. Current Diet: ADA diet Malnutrition Evaluation (07/25/2018) The patient does not meet criteria for a specified degree of malnutrition at this time. Will re-evaluate at follow-up as appropriate. Diet Education Needs Assessment: Diet education not indicated. Nutrition Care Level: low Signed: Debi Ramirez, MS, RD, LD
[2018-07-25] MEDS: SALINE 0.65% NAS SOLN 1 SPRAY BTL PRN (17:41)
[2018-07-25] MEDS: BALSAM PERU/CASTOR OIL 60 GM OINT...G. TP SCH (17:41)
[2018-07-26] VITALS (13 sets, daily range): BP systolic 98–152; BP diastolic 44–100
[2018-07-26] MEDS: VANCOMYCIN 250MG/5ML ORAL SOLN PO SCH ×4 (00:43→18:00)
[2018-07-26] MEDS: LEVOTHYROXINE SODIUM 100 MCG TAB PO SCH (05:05)
[2018-07-26 05:06] LABS: BASOPHILS # (AUTO) 0.1 (0.0-0.1); BASOPHILS % 0.5 % (0.0-1.0); EOSINOPHILS # (AUTO) 0.2 (0.0-0.4); EOSINOPHILS % 1.9 % (0.0-6.0); HEMATOCRIT 36.9 % (34.2-44.1); HEMOGLOBIN 11.4 g/dL (12.0-16.0); LYMPHOCYTES # (AUTO) 2.5 (1.0-3.2); LYMPHOCYTES % 27.1 % (18.0-39.1); MEAN CORPUSCULAR HEMOGLOBIN 29.8 pg (28-32); MEAN CORPUSCULAR HGB CONC 30.9 g/dL (31-35); MEAN CORPUSCULAR VOLUME 96.3 fL (81-99); MONOCYTES # (AUTO) 0.7 (0.2-0.8); MONOCYTES % 7.1 % (4.4-11.3); NEUTROPHILS # (AUTO) 5.7 (2.1-6.9); PLATELET COUNT 213 x10e3/uL (140-360); RED BLOOD COUNT 3.83 x10e6/uL (3.6-5.1); RED CELL DISTRIBUTION WIDTH 13.8 % (11.7-14.4)
[2018-07-26 05:44] LABS: ANION GAP 12.9 mmol/L (8-16); BLOOD UREA NITROGEN 13 mg/dL (7-26); BUN/CREATININE RATIO 18 (6-25); CALCIUM 7.9 mg/dL (8.4-10.2); CARBON DIOXIDE 27 mmol/L (22-29); CHLORIDE 108 mmol/L (98-107); CREATININE, SERUM 0.71 mg/dL (0.57-1.11); EST GLOMERULAR FILTRATION RATE > 60 ML/MIN (60-); GLUCOSE 100 mg/dL (74-118); POTASSIUM 3.9 mmol/L (3.5-5.1); SODIUM 144 mmol/L (136-145)
[2018-07-26] MEDS: INSULIN LISPRO 100 UNIT/1 ML 3ML VIAL SQ SCH ×4 (07:30→21:55)
[2018-07-26] MEDS: BALSAM PERU/CASTOR OIL 60 GM OINT...G. TP SCH ×2 (09:00→17:00)
[2018-07-26] MEDS ORDERED: SODIUM CHLORIDE 0.9% 250ML 250 ML ONE (09:14)
[2018-07-26] MEDS: SUCRALFATE 1 GM/10 ML SUSP PO SCH ×4 (09:15→21:55)
--- NOTE | 2018-07-26 09:45 | Diagnostic Imaging Report ---
EXAMINATION: CHEST SINGLE (PORTABLE) INDICATION: Follow-up respiratory status, clinical history of bronchitis. COMPARISON: Chest radiograph 07/25/2018. FINDINGS: TUBES and LINES: None. LUNGS: Lower lung volumes compared to the prior study. Persistent bibasilar patchy opacities, right greater than left. Mild central vascular congestion and increasing interstitial opacity. PLEURA: Small right pleural effusion. No evidence of pneumothorax. HEART AND MEDIASTINUM: Unchanged cardiomediastinal silhouette with mild cardiomegaly. Atherosclerotic calcification of the aortic arch. Tortuous thoracic aorta. BONES AND SOFT TISSUES: No acute osseous lesion. Soft tissues are unremarkable. UPPER ABDOMEN: No free air under the diaphragm. IMPRESSION: Persistent patchy bibasilar opacities, right greater than left, which may reflect pneumonia in the appropriate clinical context. Atelectasis can have a similar appearance. Interval development of mild pulmonary interstitial edema and small right pleural effusion. Signed by: Dr. Alonzo Schaefer MD on 07/26/2018 9:42 AM
[2018-07-26] MEDS: CEFTRIAXONE SOD 1 GM/NS 50 ML 50 ML IV SCH ×2 (10:00→21:55)
[2018-07-26] MEDS: RAMIPRIL 2.5 MG CAP PO SCH (10:00)
[2018-07-26] MEDS: AZITHROMYCIN 500MG/NS 250 ML 250 ML IV SCH (10:00)
[2018-07-26] MEDS: SALINE 0.65% NAS SOLN 1 SPRAY BTL PRN (13:00)
[2018-07-27] VITALS (13 sets, daily range): BP systolic 112–168; BP diastolic 44–87
[2018-07-27] MEDS: VANCOMYCIN 250MG/5ML ORAL SOLN PO SCH ×5 (00:15→23:26)
[2018-07-27 04:48] LABS: BASOPHILS # (AUTO) 0.1 (0.0-0.1); BASOPHILS % 0.5 % (0.0-1.0); EOSINOPHILS # (AUTO) 0.2 (0.0-0.4); HEMATOCRIT 37.4 % (34.2-44.1); HEMOGLOBIN 11.9 g/dL (12.0-16.0); LYMPHOCYTES # (AUTO) 3.1 (1.0-3.2); LYMPHOCYTES % 32.4 % (18.0-39.1); MEAN CORPUSCULAR HEMOGLOBIN 29.9 pg (28-32); MEAN CORPUSCULAR HGB CONC 31.8 g/dL (31-35); MONOCYTES # (AUTO) 0.8 (0.2-0.8); NEUTROPHILS # (AUTO) 5.2 (2.1-6.9); NEUTROPHILS % 55.3 % (38.7-80.0); PLATELET COUNT 223 x10e3/uL (140-360); RED BLOOD COUNT 3.98 x10e6/uL (3.6-5.1); RED CELL DISTRIBUTION WIDTH 13.3 % (11.7-14.4)
[2018-07-27] MEDS: LEVOTHYROXINE SODIUM 100 MCG TAB PO SCH (05:01)
[2018-07-27 05:09] LABS: ANION GAP 10.6 mmol/L (8-16); BLOOD UREA NITROGEN 14 mg/dL (7-26); BUN/CREATININE RATIO 18 (6-25); CALCIUM 8.1 mg/dL (8.4-10.2); CARBON DIOXIDE 28 mmol/L (22-29); CHLORIDE 104 mmol/L (98-107); CREATININE, SERUM 0.76 mg/dL (0.57-1.11); EST GLOMERULAR FILTRATION RATE > 60 ML/MIN (60-); GLUCOSE 107 mg/dL (74-118); POTASSIUM 3.6 mmol/L (3.5-5.1); SODIUM 139 mmol/L (136-145)
[2018-07-27] MEDS: INSULIN LISPRO 100 UNIT/1 ML 3ML VIAL SQ SCH ×4 (07:30→21:00)
[2018-07-27] MEDS: SUCRALFATE 1 GM/10 ML SUSP PO SCH ×4 (07:48→20:48)
[2018-07-27] MEDS: RAMIPRIL 2.5 MG CAP PO SCH (08:30)
--- NOTE | 2018-07-27 08:57 | NUR ---
CM MET WITH PT REGARDING DC PLANS PT IS FROM [facility] STATES SHE HAS BEEN THERE 5 1/2 YEARS AND IS HAPPY WITH THE CARE SHE RECEIVES THERE SON LAUREN BOYER [phone] PT REQUESTING TO GO BACK TO [facility] UPON DISCHARGE NOTE ON FRONT OF CHART ASKING DR LOPEZ FOR SNF RE-EVAL TODAY
[2018-07-27] MEDS: CEFTRIAXONE SOD 1 GM/NS 50 ML 50 ML IV SCH ×2 (09:00→20:48)
[2018-07-27] MEDS: BALSAM PERU/CASTOR OIL 60 GM OINT...G. TP SCH ×2 (09:00→16:00)
[2018-07-27] MEDS: AZITHROMYCIN 500MG/NS 250 ML 250 ML IV SCH (09:30)
[2018-07-27] MEDS ORDERED: ACYCLOVIR 5 GM CREAM..G. TOP PRN (10:30)
[2018-07-27] MEDS: ACYCLOVIR 15 GM OINT TP SCH ×5 (11:30→23:29)
--- NOTE | 2018-07-27 14:27 | NUR ---
verified with Dr. Lawton, patient to remain on continuous telemetry at this time.
--- NOTE | 2018-07-27 17:42 | NUR ---
physical therapy at bedside and worked with patient this morning. patient requiring total assist gait belt to get oob to wheelchair. patient remained in wheelchair through lunch and back to bed at 4pm again requiring total assist of two people to get back into bed.
[2018-07-27] MEDS: ALBUTEROL SULF 0.083% NEB SOLN 3 ML NEB NEB PRN (19:30)
--- NOTE | 2018-07-27 19:30 | NUR ---
Received patient hemodynamically stable, on room air, saturating well. Alert with episodes of confusion. Awaiting transfer out of the unit.
--- NOTE | 2018-07-27 21:00 | NUR ---
Patient refused to have her dinner, blood sugars done 166, no action taken. to monitor sugars
[2018-07-28] VITALS (7 sets, daily range): BP systolic 120–151; BP diastolic 47–62
[2018-07-28] MEDS: ACYCLOVIR 15 GM OINT TP SCH ×7 (02:30→20:30)
--- NOTE | 2018-07-28 04:20 | Diagnostic Imaging Report ---
CHEST 2 VIEWS, Technique: CHEST 2 VIEWS Comparison: Abnormal chest x-ray Clinical history: 07/26/2018 DISCUSSION: See below. Lateral is degraded by motion artifact and posterior costophrenic angles are partially excluded although mild basilar opacity is seen. IMPRESSION: 1. Stable mildly enlarged cardiac silhouette. 2. Mild basilar opacity may reflect atelectasis or aspiration/infection. 3. No significant effusion. No pneumothorax. Signed by: Dr Nadiya Brody MD on 07/28/2018 4:16 AM
[2018-07-28 04:50] LABS: BASOPHILS % 0.5 % (0.0-1.0); EOSINOPHILS # (AUTO) 0.2 (0.0-0.4); EOSINOPHILS % 2.5 % (0.0-6.0); HEMATOCRIT 37.4 % (34.2-44.1); HEMOGLOBIN 11.7 g/dL (12.0-16.0); LYMPHOCYTES # (AUTO) 2.9 (1.0-3.2); LYMPHOCYTES % 32.7 % (18.0-39.1); MEAN CORPUSCULAR HEMOGLOBIN 29.5 pg (28-32); MEAN CORPUSCULAR HGB CONC 31.3 g/dL (31-35); MEAN CORPUSCULAR VOLUME 94.2 fL (81-99); MONOCYTES # (AUTO) 0.6 (0.2-0.8); MONOCYTES % 7.2 % (4.4-11.3); NEUTROPHILS # (AUTO) 4.8 (2.1-6.9); PLATELET COUNT 207 x10e3/uL (140-360); RED BLOOD COUNT 3.97 x10e6/uL (3.6-5.1); RED CELL DISTRIBUTION WIDTH 13.6 % (11.7-14.4)
--- NOTE | 2018-07-28 05:00 | NUR ---
Stage 1 wound sacral region, Venelex applied and dressed with Allevyn. Straight catheterization done, urine collected for culture
[2018-07-28 05:20] LABS: ANION GAP 11.6 mmol/L (8-16); BLOOD UREA NITROGEN 12 mg/dL (7-26); BUN/CREATININE RATIO 17 (6-25); CALCIUM 8.2 mg/dL (8.4-10.2); CARBON DIOXIDE 27 mmol/L (22-29); CHLORIDE 104 mmol/L (98-107); CREATININE, SERUM 0.69 mg/dL (0.57-1.11); EST GLOMERULAR FILTRATION RATE > 60 ML/MIN (60-); GLUCOSE 152 mg/dL (74-118); POTASSIUM 3.6 mmol/L (3.5-5.1); SODIUM 139 mmol/L (136-145)
[2018-07-28] MEDS: VANCOMYCIN 250MG/5ML ORAL SOLN PO SCH (06:00)
[2018-07-28] MEDS: LEVOTHYROXINE SODIUM 100 MCG TAB PO SCH (06:00)
[2018-07-28 06:23] LABS: COLOR,URINE YELLOW (YELLOW)
[2018-07-28 06:24] LABS: CLARITY,URINE CLEAR (CLEAR); LEUKOCYTE ESTERASE ,URINE NEGATIVE (NEGATIVE); NITRITE,URINE NEGATIVE (NEGATIVE)
[2018-07-28 06:25] LABS: BILIRUBIN,URINE NEGATIVE (NEGATIVE); KETONES,URINE NEGATIVE (NEGATIVE); PROTEIN,URINE DIPSTICK NEGATIVE (NEGATIVE); URINE UROBILINOGEN 0.2 mg/dL (0.2 - 1)
[2018-07-28 06:37] LABS: BACTERIA,URINE RARE /HPF; EPITHELIAL CELLS,URINE RARE /LPF; RBC,URINE 0-5 /HPF (0-5); WBC,URINE (MAN) 0-5 /HPF (0-5)
--- NOTE | 2018-07-28 06:57 | NUR ---
patient handed over stable
[2018-07-28] MEDS: SUCRALFATE 1 GM/10 ML SUSP PO SCH ×4 (07:59→21:00)
[2018-07-28 08:25] LABS: BAND NEUTROPHILS % (MANUAL) 1 %; EOSINOPHILS % (MANUAL) 1 % (0-7); LYMPHOCYTES % (MANUAL) 34 % (19-48); METAMYELOCYTES % (MANUAL) 1 % (0-0); MONOCYTES % (MANUAL) 10 % (3.4-9.0); MYELOCYTES % (MANUAL) 2 % (0-0); NEUTROPHILS % (MANUAL) 46 % (40-74)
[2018-07-28 08:26] LABS: ANISOCYTOSIS SLIGHT; HOWELL-JOLLY BODIES FEW; HYPOCHROMASIA SLIGHT; PLATELET ESTIMATE ADEQUATE; PLATELET MORPHOLOGY COMMENT FEW LARGE; RBC MORPHOLOGY COMMENT NORMAL
[2018-07-28] MEDS: INSULIN LISPRO 100 UNIT/1 ML 3ML VIAL SQ SCH ×4 (09:14→21:27)
[2018-07-28] MEDS: CEFTRIAXONE SOD 1 GM/NS 50 ML 50 ML IV SCH ×2 (09:16→21:00)
[2018-07-28] MEDS: RAMIPRIL 2.5 MG CAP PO SCH (09:17)
[2018-07-28] MEDS: BALSAM PERU/CASTOR OIL 60 GM OINT...G. TP SCH ×2 (09:17→18:02)
[2018-07-28] MEDS: AZITHROMYCIN 500MG/NS 250 ML 250 ML IV SCH (09:55)
--- NOTE | 2018-07-28 10:20 | NUR ---
Per Drs. Ba and Jered, jeferson for patient to discharge back to [place] today.
--- NOTE | 2018-07-28 14:28 | Discharge Summary ---
The patient required hospitalization through the emergency room in transfer from the [facility] where she had been residing for over 5 years. She presented with urosepsis. See also ER notes, history and physical, and consultations. Database was obtained and monitored. The patient was treated with intravenous antibiotics and progressively improved. After arrival, the patient transiently developed low O2 saturations and required hospitalization. She had generalized wet wheezes transiently. She was treated with pulmonary therapy and supplemental O2. She was kindly followed closely by consultants in pulmonary medicine. See consultations. Her respiratory failure resolved on medical therapy. The patient's medical problems include diabetes mellitus, which was monitored and managed medically. Course was complicated by spinal stenosis. The patient is not able to be ambulated. Hypothyroidism treated while here. Patient also has suspected extrapyramidal symptoms. White count on admission was 14,111 with a left shift. White count on July 27, 2018, was 9.4 and on July 28, 2018, 8.7. Admission hemoglobin 10.9. Hemoglobin 11.7 on July 28, 2018. Platelet count is normal. Red cell indices normal. INR 1.3. Initially, urinalysis with over 50 white cells per high power field. Dipstick positive for nitrites and leukocyte esterase. Repeat urinalysis on July 28, 2018, was clear. Influenza A and B antigens were negative. The emergency room white blood cell count on arrival was 20,090, on July 23, 2018. Left shift. Chemistries were monitored. Cardiac enzymes revealed no evidence of NH. Blood sugars monitored and treated as needed. Natriuretic peptide was 160. Blood cultures without growth. Urine culture with Proteus mirabilis. At the longterm prior to transfer here on July 23, 2018, the patient's fever was 101.6. July 23, 2018, chest x-ray with pulmonary hyperinflation. V/Q scan and leg venous Dopp scans were negative. Followup chest x-rays monitored. See serial reports. Chest x-ray on July 28, 2018, mildly enlarged cardiac silhouette. Mild basilar opacity. May reflect atelectasis. No significant effusion or pneumothorax. Transiently, the patient required stay in the intensive care unit as recommended by pulmonary medicine consultants because of hypokalemia which improved. Discharge was authorized on the morning of July 28, 2018, to the patient's longterm where I will follow her. There she will continue current medical therapy to include antibiotics, diabetic monitoring and treatment. Chronic levothyroxine as prior to admission. See also serial med list here. The patient's course was complicated by significant diarrhea, which responded to medical therapy. CD toxin was requested and is pending. Diarrhea has resolved on oral vancomycin. DONTA LOPEZ MD Job#: [id number] CT
--- NOTE | 2018-07-28 15:22 | NUR ---
If unable to transfer to [place] today, okay to transfer to Med Surg with telemetry.
--- NOTE | 2018-07-28 16:24 | NUR ---
FAXED CLINICALS TO [facility] [phone] WAITING ON AUTH
--- NOTE | 2018-07-28 19:30 | NUR ---
Received patient hemodynamically stable, awaiting [facility]. No complaints raised
--- NOTE | 2018-07-28 20:37 | NUR ---
SPOKE WITH MD LOPEZ. PATIENT TO BE DISCHARGED BACK TO THE LONG-TERM [facility]. CALL THE UNIT TO MAKE THEM AWARE TO CALL REPORT AND TRANSFER THE PATIENT BACK TO THE LONG-TERM.
--- NOTE | 2018-07-28 20:45 | NUR ---
Called in report to [facility], organized for an ambulance and informed the son of the pending transfer for [facility]
--- NOTE | 2018-07-28 21:35 | NUR ---
All due medications administered as prescribed, patient made aware of the transfer, vitals remain stable, waiting for the ambulance.
--- NOTE | 2018-07-28 22:30 | NUR ---
Patient handed over to the EMS stable.
== END 2018-07-28 22:30 | DRG 871 ==
LOC: ER 16:40 → ERHOLD 20:08 → MED/SURG2 21:14 → ICU 07-24 12:12
PROVIDERS: ADMIT Internal Medicine; ATTEND Internal Medicine
DX: A41.9 Sepsis, unspecified organism (principal); J18.9 Pneumonia, unspecified organism; N39.0 Urinary tract infection, site not specified; G25.9 Extrapyramidal and movement disorder, unspecified; J20.9 Acute bronchitis, unspecified; M48.00 Spinal stenosis, site unspecified; K21.9 Gastro-esophageal reflux disease without esophagitis; E03.9 Hypothyroidism, unspecified; E11.9 Type 2 diabetes mellitus without complications; I10 Essential (primary) hypertension; E87.70 Fluid overload, unspecified; B96.4 Proteus (mirabilis) (morganii) as the cause of diseases classified elsewhere; E87.6 Hypokalemia; R19.7 Diarrhea, unspecified; E83.51 Hypocalcemia; M19.90 Unspecified osteoarthritis, unspecified site
CPT/HCPCS: 36415; 36600; 71045; 71046; 78582; 80048; 80053; 81001; 82550; 82553; 82805; 82948; 83605; 83735; 83880; 84484; 85025; 85379; 85610; 85730; 87040; 87086; 87186; 87400; 93005; 93970; 94640; 96360; 96361; 96372; 97139; 99284; A9540; A9558; J0456; J0696; J1644; J1720; J1940; J7030; J7050

== ENCOUNTER → 2018-10-27 | Outpatient (CLI) | payer MEDICARE, OTHER ==
--- NOTE | 2018-10-27 13:52 | Diagnostic Imaging Report ---
Exam: Modified barium swallow dated 10/27/2018 History: Dysphagia Comparison: None available Findings: . Evaluation was performed in conjunction with Speech Pathology with a variety of barium impregnated liquids and semisolids. There was consistent laryngeal penetration into the laryngeal vestibule. No aspiration was noted. Fluoroscopy time: 3.1 minutes Total dose: 17.44 mGy Impression: Consistent laryngeal penetration without evidence of aspiration. Please see the full report provided by the Speech Pathologist. Signed by: Dr. Panda Gonzalez DO on 10/27/2018 1:48 PM
== END ==
LOC: DX 10:17
PROVIDERS: ATTEND Psychiatry & Neurology Neurology
DX: R13.10 Dysphagia, unspecified (principal)
CPT/HCPCS: 74230

== ENCOUNTER 2019-02-26 08:55 | Inpatient (IN) | payer MEDICARE, OTHER ==
[~2019-02-26] VITALS: Ht 157.5 cm; Wt 56.8 kg
[2019-02-26] MEDS ORDERED: SODIUM CHLORIDE 0.9% 500ML 500 ML IV ONE (09:15)
[2019-02-26] MEDS ORDERED: VANCOMYCIN 1GM/NS 250 ML 250 ML IV ONE (09:30)
[2019-02-26 09:32] LABS: BILIRUBIN,URINE NEGATIVE (NEGATIVE); CLARITY,URINE SL CLOUDY (CLEAR); COLOR,URINE YELLOW (YELLOW); KETONES,URINE NEGATIVE (NEGATIVE); LEUKOCYTE ESTERASE ,URINE TRACE (NEGATIVE); NITRITE,URINE POSITIVE (NEGATIVE); PROTEIN,URINE DIPSTICK NEGATIVE (NEGATIVE); URINE UROBILINOGEN 1 mg/dL (0.2 - 1)
[2019-02-26 09:40] LABS: BASOPHILS % 0.4 % (0.0-1.0); EOSINOPHILS # (AUTO) 0.2 (0.0-0.4); HEMATOCRIT 42.9 % (34.2-44.1); HEMOGLOBIN 13.6 g/dL (12.0-16.0); LYMPHOCYTES # (AUTO) 2.8 (1.0-3.2); LYMPHOCYTES % 29.5 % (18.0-39.1); MEAN CORPUSCULAR HEMOGLOBIN 30.5 pg (28-32); MEAN CORPUSCULAR HGB CONC 31.7 g/dL (31-35); MEAN CORPUSCULAR VOLUME 96.2 fL (81-99); MONOCYTES # (AUTO) 0.8 (0.2-0.8); MONOCYTES % 8.3 % (4.4-11.3); NEUTROPHILS # (AUTO) 5.7 (2.1-6.9); NEUTROPHILS % 59.4 % (38.7-80.0); PLATELET COUNT 204 x10e3/uL (140-360); RED BLOOD COUNT 4.46 x10e6/uL (3.6-5.1); RED CELL DISTRIBUTION WIDTH 13.7 % (11.7-14.4)
[2019-02-26 10:01] LABS: BACTERIA,URINE MANY /HPF; EPITHELIAL CELLS,URINE FEW /LPF; RBC,URINE 0-5 /HPF (0-5)
[2019-02-26 10:11] LABS: ALBUMIN 3.4 g/dL (3.5-5.0); ALBUMIN/GLOBULIN RATIO 1.1 (0.8-2.0); ALKALINE PHOSPHATASE 85 IU/L (40-150); BLOOD UREA NITROGEN 12 mg/dL (7-26); BUN/CREATININE RATIO 18 (6-25); CALCIUM 9.2 mg/dL (8.4-10.2); CARBON DIOXIDE 32 mmol/L (22-29); CHLORIDE 104 mmol/L (98-107); CREATINE KINASE 44 IU/L (29-168); CREATININE, SERUM 0.68 mg/dL (0.57-1.11); EST GLOMERULAR FILTRATION RATE > 60 ML/MIN (60-); GLUCOSE 89 mg/dL (74-118); MAGNESIUM 2.3 MG/DL (1.3-2.1); SODIUM 144 mmol/L (136-145)
[2019-02-26 10:15] LABS: ALANINE AMINOTRANSFERASE < 6 IU/L (0-55)
[2019-02-26 10:21] LABS: B-TYPE NATRIURETIC PEPTIDE2 169.9 pg/mL (0-100)
[2019-02-26] MEDS: CEFTRIAXONE SOD 1 GM/NS 50 ML 50 ML IV SCH ×2 (10:31→21:03)
--- NOTE | 2019-02-26 10:31 | Diagnostic Imaging Report ---
CT BRAIN WO HISTORY: Altered mental status, fall COMPARISON: Head CT 01/17/2018 Technique: Noncontrast axial scans were obtained from skull base to the vertex. Coronal and sagittal reconstructions obtained from the axial data. One or more of the following dose reduction techniques were used: Automated exposure control, adjustment of the mA and/or kV according to patient size, and/or utilization of iterative reconstruction technique. DISCUSSION: Scalp/Skull: Unremarkable. Brain sulci: Mildly prominent. Ventricles: Compensatory dilatation. Extra-axial spaces: No masses or fluid collections. Carotid and vertebral artery calcifications are present. Parenchyma: Mild bilateral deep white matter hypodensity is likely chronic microvascular ischemic change. Otherwise, no masses, hemorrhage, or large vascular territory acute infarct. Dural sinuses: No abnormal densities. Sellar/Suprasellar region: Intact. Skull base: Intact. Incidental findings: Small left mastoid effusion. Bilateral ocular lens replacement. IMPRESSION: 1. No acute intracranial abnormalities. 2. Mild supratentorial chronic microvascular ischemic change. Mild generalized cerebral volume loss. Signed by: Dr. Cliff Talbert M.D. on 02/26/2019 10:28 AM
--- NOTE | 2019-02-26 10:37 | Diagnostic Imaging Report ---
CT CERVICAL SPINE WO HISTORY: Fall COMPARISON: Cervical spine CT report from 07/20/2015 (images not available) TECHNIQUE: CT of the cervical spine without contrast. Sagittal and coronal reformations were created. One or more of the following dose reduction techniques were used: Automated exposure control, adjustment of the mA and/or kV according to patient size, and/or utilization of iterative reconstruction technique. FINDINGS: Mild bone demineralization limits evaluation. Cervical lordosis is slightly straightened. There is no scoliosis or subluxation. No definite acute fracture or compression deformity is seen. The craniocervical junction is intact. No gross spinal canal masses are seen. The paravertebral and paraspinal soft tissues are unremarkable. Multilevel moderate spondylosis is present with associated multilevel bilateral facet arthrosis. The left C2-C3 facet joint is fused. Moderate atlantoaxial arthrosis is present as well. The thyroid gland appears atrophic. Mild bilateral carotid bulb calcified plaque is present. IMPRESSION: 1. No acute osseous abnormalities. 2. Multilevel degenerative changes as described. Signed by: Dr. Cliff Talbert M.D. on 02/26/2019 10:34 AM
[2019-02-26] MEDS ORDERED: SODIUM CHLORIDE 0.9% 1000ML 1,000 ML IV ONE (10:45)
[2019-02-26] MEDS ORDERED: DEXTROSE 50% SYRINGE 50 ML IV PRN (10:45)
[2019-02-26] MEDS ORDERED: ONDANSETRON HCL INJ 2MG/ML 2ML 2 MG/ML VIAL IV PRN (10:45)
[2019-02-26 10:47] LABS: INR 1.02; PROTHROMBIN TIME 13.9 seconds (11.9-14.5)
--- NOTE | 2019-02-26 10:48 | Diagnostic Imaging Report ---
EXAMINATION: CHEST SINGLE (PORTABLE) COMPARISON: 07/28/2018 INDICATION: ^AMS ^[id number] ^[id number] DISCUSSION: Frontal view of the chest obtained at 0946 hours. HEART AND MEDIASTINUM: Mild cardiomegaly. LINES: None. LUNGS: Low lung volumes without evidence of atelectasis. No pneumonia or pulmonary edema. PLEURA: No pleural effusion or pneumothorax. BONES AND SOFT TISSUES: No focal osseous lesion. Mild degenerative changes of the spine and AC joints. The soft tissues are normal. IMPRESSION: No acute cardiopulmonary disease. Signed by: Dr. Marjorie Pearson MD on 02/26/2019 10:44 AM
[2019-02-26 10:49] LABS: PARTIAL THROMBOPLASTIN TIME 64.2 seconds (23.8-35.5)
[2019-02-26] MEDS: INSULIN LISPRO 100 UNIT/1 ML 3ML VIAL SQ SCH ×3 (11:30→21:00)
--- NOTE | 2019-02-26 12:00 | NUR ---
received pt in stretcher with eyes open, Resp even and unlabored. accompanied by son and daughter in law. patient transferred to bed. patient AAOx1, bed alarm on zone 1. bed in low and locked position. lunch meal provided, son at bedside assisting patient with feeding. patient hard of hearing and noted with top dentures. call light placed within reach and instructed to call for assistance.
[2019-02-26 12:15] VITALS: BP 178/75
[2019-02-26] MEDS ORDERED: ONDANSETRON HCL 4 MG ORAL DISINTEGRATING TAB SL PRN (12:15)
[2019-02-26] MEDS ORDERED: ACETAMINOPHEN 325 MG TAB PO PRN (13:00)
[2019-02-26 13:50] VITALS: BP 178/75
[2019-02-26 13:51] VITALS: BP 178/75
--- NOTE | 2019-02-26 14:12 | History and Physical ---
HISTORY OF PRESENT ILLNESS: The patient was referred to the emergency room [facility]. The patient had depressed sensorium, markedly so according to the [facility]. She was found to have pyuria here. Other ER workup appeared negative including CBC, chemistries, head CT and C-spine CT, chest x-ray, see lab. Urine culture pending. History has included multiple prior urinary tract infections associated with altered sensorium. Family reports depressed sensorium for several weeks. More so for two days. History has included spinal stenosis with severe leg weakness. Prior surgery at [facility]. PAST MEDICAL HISTORY: Includes: 1. GERD. 2. Allergic rhinitis. 3. Hypothyroidism. 4. Diabetes type 2. 5. Degenerative joint disease. PAST SURGICAL HISTORY: Hysterectomy, cholecystectomy, surgery for bleeding ulcer. Spinal stenosis surgery previously. FAMILY HISTORY: Noncontributory per the patient. ALLERGIES: OLD RECORDS STATE THE PATIENT HAS HAD ALLERGIES TO PENICILLIN, SULFA, AND IODINE. THE PATIENT HAS TOLERATED CEPHALOSPORINS PREVIOUSLY. SOCIAL HISTORY: No tobacco or alcohol. REVIEW OF SYSTEMS: The patient states she has had prior neck surgery. Family denies. The patient denies headache or visual change. Hearing is poor, she states. She is essentially confined to bed and wheelchair. Denies chest pain or shortness of breath. No GI symptoms. Denies dysuria or frequency. Neuromuscular symptoms stable with chronic leg weakness as above. PHYSICAL EXAMINATION: GENERAL: Currently, the patient is awake and cooperative. VITAL SIGNS: Temperature 97.3, pulse 69 and regular, respiratory rate 19, BP 178/75. O2 saturation 95%. HEENT: Mild pallor. No icterus. Throat clear. NECK: Flexes. Carotids palpable, weak. PULMONARY: Auscultation clear. CARDIAC: Sounds S1, S2 soft. ABDOMEN: Soft. Bowel sounds normal. EXTREMITIES: Free of cyanosis, clubbing, or edema. Generalized leg weakness. DTRs reduced. Hearing poor. The patient is oriented to person. IMPRESSION: As above. 1. Altered mental status. 2. Urinary tract infection, recurrent. 3. Hypothyroidism. 4. Hypertension. 5. Poor hearing. 6. Spinal stenosis. 7. Allergic rhinitis. 8. Type 2 diabetes mellitus. PLAN: See also initial and updated orders to support medically. The patient was cultured. Needs fall avoidance. Further neurological reassessment if unimproved on ABT. MD JULIAN Thakkar/KAI /[id number]
[2019-02-26 16:00] VITALS: BP 135/65
[2019-02-26] MEDS: SUCRALFATE 1 GM/10 ML SUSP PO SCH ×2 (16:30→21:03)
[2019-02-26 20:29] VITALS: BP 163/67
--- NOTE | 2019-02-26 21:30 | NUR ---
care of this taken over from Diana Bautista RN. report received at this time. patient awake, alert x 1 (person only). patient lying quietly in bed. 1:1 noted at the bedside. no c/o pain noted at this time.
[2019-02-27] VITALS (9 sets, daily range): BP systolic 119–163; BP diastolic 54–80
--- NOTE | 2019-02-27 | NUR ---
Report given to Jermaine SEALS at this time.
[2019-02-27] MEDS: LEVOTHYROXINE SODIUM 100 MCG TAB PO SCH (05:00)
[2019-02-27 05:21] LABS: BASOPHILS % 0.4 % (0.0-1.0); EOSINOPHILS # (AUTO) 0.2 (0.0-0.4); EOSINOPHILS % 2.3 % (0.0-6.0); HEMATOCRIT 37.9 % (34.2-44.1); HEMOGLOBIN 12.1 g/dL (12.0-16.0); LYMPHOCYTES % 44.4 % (18.0-39.1); MEAN CORPUSCULAR HEMOGLOBIN 30.3 pg (28-32); MEAN CORPUSCULAR HGB CONC 31.9 g/dL (31-35); MEAN CORPUSCULAR VOLUME 94.8 fL (81-99); MONOCYTES # (AUTO) 0.8 (0.2-0.8); MONOCYTES % 8.7 % (4.4-11.3); NEUTROPHILS # (AUTO) 3.9 (2.1-6.9); NEUTROPHILS % 43.9 % (38.7-80.0); PLATELET COUNT 188 x10e3/uL (140-360); RED CELL DISTRIBUTION WIDTH 13.5 % (11.7-14.4)
[2019-02-27 05:33] LABS: ALANINE AMINOTRANSFERASE 12 IU/L (0-55); ALBUMIN 2.9 g/dL (3.5-5.0); ALKALINE PHOSPHATASE 66 IU/L (40-150); ANION GAP 11.8 mmol/L (8-16); BLOOD UREA NITROGEN 11 mg/dL (7-26); BUN/CREATININE RATIO 17 (6-25); CALCIUM 8.4 mg/dL (8.4-10.2); CARBON DIOXIDE 28 mmol/L (22-29); CHLORIDE 107 mmol/L (98-107); CREATININE, SERUM 0.64 mg/dL (0.57-1.11); EST GLOMERULAR FILTRATION RATE > 60 ML/MIN (60-); GLUCOSE 110 mg/dL (74-118); POTASSIUM 3.8 mmol/L (3.5-5.1); SODIUM 143 mmol/L (136-145)
[2019-02-27] MEDS ORDERED: RAMIPRIL 5 MG CAP PO SCH (06:00)
[2019-02-27] MEDS: INSULIN LISPRO 100 UNIT/1 ML 3ML VIAL SQ SCH ×5 (07:30→21:32)
[2019-02-27] MEDS: SUCRALFATE 1 GM/10 ML SUSP PO SCH ×5 (08:20→21:32)
[2019-02-27] MEDS: DOCUSATE SODIUM 100 MG CAP PO SCH (08:20)
[2019-02-27] MEDS: CEFTRIAXONE SOD 1 GM/NS 50 ML 50 ML IV SCH ×3 (10:30→21:35)
--- NOTE | 2019-02-27 12:13 | NUR ---
EDUCATED ABOUT IMM, SIGNED, FILED IN CHART, WITH COPY LEFT WITH FAMILY AT BEDSIDE.
--- NOTE | 2019-02-27 19:15 | NUR ---
PATIENT RECEIVED. PATIENT IS CONFUSE, AAOX1, RESTING IN BED. RESP EVEN AND UNLABORED. SONS AT BED SIDE. SITTER 1:1 AT BED SIDE. NO C/O PAIN OR DISCOMFORT AT THIS TIME. CONTINUE TO MONITOR CLOSELY
[2019-02-27] MEDS ORDERED: SODIUM CHLORIDE 0.9% 250ML 250 ML ONE (21:51)
--- NOTE | 2019-02-27 22:00 | NUR ---
NOTIFIED DR LOPEZ THAT PATIENT IS COMBATIVE, YELLING OUT, TRIED TO GET OF THE BED AND REFUSE ALL HER MEDS. SAID IT'S OKAY IF SHE GOT HER ANTIBIOTIC THIS MORNING. NO NEW ORDER RECEIVED. SITTER IS AT BED SIDE WITH PATIENT. BED ALARM IS ON. SIDE RAIL UPX3. CONTINUE TO MONITOR CLOSELY
[2019-02-28] VITALS (7 sets, daily range): BP systolic 105–181; BP diastolic 44–79
[2019-02-28] MEDS: LEVOTHYROXINE SODIUM 100 MCG TAB PO SCH (06:00)
--- NOTE | 2019-02-28 07:00 | NUR ---
BEDSIDE SHIFT REPORT RECEIVED FROM THE OUTBOARD SYSTEM OPERATOR RN. MONTES AT BEDSIDE. FALL PRECAUTIONS IMPLEMENTED. PT DENIES NEEDS AT THIS TIME.
[2019-02-28] MEDS: SUCRALFATE 1 GM/10 ML SUSP PO SCH ×4 (08:15→21:00)
[2019-02-28] MEDS: INSULIN LISPRO 100 UNIT/1 ML 3ML VIAL SQ SCH ×4 (08:30→21:00)
[2019-02-28] MEDS ORDERED: RAMIPRIL 2.5 MG CAP PO SCH (09:00)
[2019-02-28] MEDS: DOCUSATE SODIUM 100 MG CAP PO SCH (09:07)
[2019-02-28] MEDS: MEROPENEM 500MG/ NS 50ML 50 ML IV SCH ×2 (10:35→17:14)
--- NOTE | 2019-02-28 19:00 | NUR ---
BEDSIDE SHIFT REPORT GIVEN TO THE CLINICAL PHARMACY SPECIALIST RN. PT DENIED FURTHER NEEDS.
--- NOTE | 2019-02-28 20:09 | NUR ---
PATIENT RECEIVED. PATIENT IS RESTING IN BED, AAOX1. RESP EVEN AND UNLABORED. SONS AT BED SIDE. SITTER 1:1 AT BED SIDE. NO C/O PAIN OR DISCOMFORT AT THIS TIME. CONTINUE TO MONITOR CLOSELY
[2019-03-01] VITALS (7 sets, daily range): BP systolic 108–149; BP diastolic 53–70
[2019-03-01] MEDS: MEROPENEM 500MG/ NS 50ML 50 ML IV SCH ×2 (02:45→09:43)
[2019-03-01] MEDS: LEVOTHYROXINE SODIUM 100 MCG TAB PO SCH (06:00)
--- NOTE | 2019-03-01 07:00 | NUR ---
BEDSIDE SHIFT REPORT RECEIVED FROM THE RN DIABETES RN. RECEIVED PT LYING ON BED AND SLEEPING. SITTER AT BEDSIDE. FALL PRECAUTIONS IMPLEMENTED.
[2019-03-01] MEDS: INSULIN LISPRO 100 UNIT/1 ML 3ML VIAL SQ SCH ×4 (07:30→21:19)
[2019-03-01] MEDS: SUCRALFATE 1 GM/10 ML SUSP PO SCH ×4 (08:30→21:17)
--- NOTE | 2019-03-01 09:00 | NUR ---
WALKING ROUNDS COMPLETED. PT IS SLEEPING . SON AT BEDSIDE.
[2019-03-01] MEDS: RAMIPRIL 2.5 MG CAP PO SCH (09:43)
[2019-03-01] MEDS: DOCUSATE SODIUM 100 MG CAP PO SCH (09:43)
--- NOTE | 2019-03-01 11:00 | NUR ---
WALKING ROUNDS COMPLETED. PT IS SLEEPING ON BED. BED ALARM IS ON.
--- NOTE | 2019-03-01 11:05 | NUR ---
EDUCATED ABOUT IMM, SIGNED, FILED IN CHART, WITH COPY LEFT WITH FAMILY AT BEDSIDE.
--- NOTE | 2019-03-01 12:00 | NUR ---
WALKING ROUNDS COMPLETED. PT IS SLEEPING ON BED. NO DISTRESS NOTED. CHARGE NURSE NOTIFIED. BED ALARM IS ON.
--- NOTE | 2019-03-01 12:15 | NUR ---
INSULIN NOT GIVEN SINCE PT IS NOT EATING FROM MORNING.
--- NOTE | 2019-03-01 15:45 | NUR ---
PAGED DR. LOPEZ REGARDING PT DISCHARGE PLAN. PER THE DR, DISCUSS WITH CASE MANAGEMENT REGARDING IV ABX. CHANGE MERREM 500 MG TO 1000 MG Q8. INFORMED THE SAME TO CASE MANAGEMENT.
--- NOTE | 2019-03-01 15:50 | NUR ---
DR. LOPEZ AT BEDSIDE. NEW ORDER FOR [facility] RECEIVED.
--- NOTE | 2019-03-01 16:26 | NUR ---
Wound consult Blanchable redness to sacrum. perineal incontinence dermatitis. Patient is incontinent of urine. Recommendation: Continue to turn q 2 hrs. Continue alternating pressure relief mattress. Heel protectors with heel lifts. Continue moisture barrier to ned anal redness Continue allevyn foam dressing to sacrum.
[2019-03-01] MEDS: MEROPENEM 1GM 100 ML IV SCH (17:06)
[2019-03-01] MEDS ORDERED: MEROPENEM 1GRAM 1 GM in SODIUM CHLORIDE 0.9% 100 ML 100 ML IV SCH (18:00)
--- NOTE | 2019-03-01 19:00 | NUR ---
BEDSIDE SHIFT REPORT GIVEN TO THE CRIMINAL RESEARCH SPECIALIST RN. PT DENIED FURTHER NEEDS.
[2019-03-02] VITALS: BP 127/61
[2019-03-02] MEDS: MEROPENEM 1GM 100 ML IV SCH ×2 (02:00→09:00)
[2019-03-02 04:00] VITALS: BP 147/62
[2019-03-02] MEDS: LEVOTHYROXINE SODIUM 100 MCG TAB PO SCH (05:35)
--- NOTE | 2019-03-02 06:54 | NUR ---
REPORT GIVEN TO ONCOMING NURSE.WALKING ROUNDS MADE. PT RESTING IN BED WITH NO S/S OF DISTRESS.
--- NOTE | 2019-03-02 07:00 | NUR ---
BEDSIDE SHIFT REPORT RECEIVED FROM THE OUTSIDE PROPERTY AGENT RN. FALL PRECAUTIONS IMPLEMENTED. BED ALARM IS ON. PT DENIES NEEDS AT THIS TIME
[2019-03-02] MEDS: INSULIN LISPRO 100 UNIT/1 ML 3ML VIAL SQ SCH ×2 (07:30→12:00)
[2019-03-02 08:06] VITALS: BP 162/71
[2019-03-02] MEDS: SUCRALFATE 1 GM/10 ML SUSP PO SCH ×2 (08:15→12:00)
[2019-03-02 08:30] VITALS: BP 162/71
[2019-03-02] MEDS: RAMIPRIL 2.5 MG CAP PO SCH (08:45)
[2019-03-02] MEDS: DOCUSATE SODIUM 100 MG CAP PO SCH (08:45)
--- NOTE | 2019-03-02 10:25 | NUR ---
SPOKE WITH SON CHOICE IS TO RETURN TO [facility] FAXED CLINICALS TO [phone]
[2019-03-02 12:00] VITALS: BP 130/60
--- NOTE | 2019-03-02 12:45 | NUR ---
DR. LOPEZ AT BEDSIDE. [facility]SF[facility] PER [facility]
--- NOTE | 2019-03-02 12:55 | NUR ---
CALLED [facility] AND REPORT GIVEN TO BOZENA VELASCO. PT WILL BE GOING TO [facility] 111[facility]. LEAVE THE IV PER THE RN FOR FUTURE ABX USE..
--- NOTE | 2019-03-02 13:00 | NUR ---
CALLED SON JAVAD AND LEFT MESSAGE REGARDING PT TRANSFER PER THE REQUEST.
--- NOTE | 2019-03-02 13:15 | NUR ---
CALL BACK RECEIVED FROM JAVAD (SON). INFORMED ABOUT PT TRANSFER. OKAY PER SON.
--- NOTE | 2019-03-02 14:00 | NUR ---
OKAY TO USE [facility] FOR PT TRANSFER PER SON SILVESTRE BOYER. TELEPHONE CONSENT.
--- NOTE | 2019-03-02 15:23 | Discharge Summary ---
HOSPITAL COURSE: The patient experienced profoundly reduced sensorium [facility] and was hospitalized through the emergency room here for treatment of acute resistant urinary tract infection as well as reassessment. Database was obtained and monitored. Treatment was adjusted per cultures when available. Blood sugars were monitored and treated medically. Prior to admission, thyroid supplements continued. Physical therapy ordered. The patient experienced improvement. No fever. White count, hematocrit, and platelet counts were normal. INR 1.02. Urinalysis with 10 to 20 white cells per high-power field, positive nitrate, trace positive leukocyte esterase on admission. RPR nonreactive. Admission chemistries essentially normal. TSH normal at 5.3 trace elevated, not significant. Natriuretic peptide was 169. Ammonia level normal at 40. Two blood cultures negative. Urine culture, E. coli ESBL. Sensitive to Merrem, aminoglycosides, Macrodantin, nitrofurantoin, and Zosyn. The patient is allergic to penicillin and sulfa as well as iodine. Chest x-ray Clear. ER performed C-spine. CT DJD. ER performed head CT with no acute intracranial abnormalities. Mild supratentorial chronic microvascular ischemic changes and mild generalized cerebral volume loss observed. FINAL IMPRESSION: Resistant urinary tract infection, extended-spectrum beta-lactamase. Recurrent urinary tract infections. Acute exacerbation in encephalopathy toxic. Chronic organic brain syndrome. Hypothyroidism. Primary hypertension. Chronically, poor hearing. Spinal stenosis, chronically unable to ambulate. Allergic rhinitis. Type 2 diabetes mellitus. PLAN: The patient will continue IV antibiotics and medical support. To discuss medications with the patient's [facility]. MD JULIAN Thakkar/MODL /[id number]
--- NOTE | 2019-03-02 16:25 | NUR ---
PT DISCHARGED TO [facility]. LEFT IV PER THE REQUEST BY KRISTA SEALS FROM [facility] FOR FUTURE ABX USE. PT DENIED FURTHER NEEDS.
== END 2019-03-02 16:30 | DRG 689 ==
LOC: ER 08:55 → ERHOLD 10:54 → MED/SURG2 12:03
PROVIDERS: ADMIT Internal Medicine; ATTEND Internal Medicine
DX: N39.0 Urinary tract infection, site not specified (principal); G92 Toxic encephalopathy; B96.20 Unspecified Escherichia coli [E. coli] as the cause of diseases classified elsewhere; Z16.12 Extended spectrum beta lactamase (ESBL) resistance; F09 Unspecified mental disorder due to known physiological condition; E03.9 Hypothyroidism, unspecified; I10 Essential (primary) hypertension; M48.00 Spinal stenosis, site unspecified; J30.9 Allergic rhinitis, unspecified; E11.9 Type 2 diabetes mellitus without complications; Z79.4 Long term (current) use of insulin; K21.9 Gastro-esophageal reflux disease without esophagitis; M19.90 Unspecified osteoarthritis, unspecified site; Z90.710 Acquired absence of both cervix and uterus; Z90.49 Acquired absence of other specified parts of digestive tract; H91.90 Unspecified hearing loss, unspecified ear
CPT/HCPCS: 36415; 70450; 71045; 72125; 80053; 81001; 82140; 82550; 82553; 82948; 83605; 83735; 83880; 84443; 84484; 85025; 85610; 85730; 86592; 87040; 87086; 87186; 93005; 97139; J0696; J3370; J7040; J7050; J7799

== ENCOUNTER 2019-06-10 18:25 | Inpatient (IN) | payer MEDICARE, OTHER ==
[~2019-06-10] VITALS: Ht 157.5 cm; Wt 81.3 kg
[2019-06-10] MEDS ORDERED: SODIUM CHLORIDE 0.9% 1000ML 1,000 ML IV SCH (19:30)
[2019-06-10] MEDS ORDERED: CEFTRIAXONE SOD 1 GM/NS 50 ML 50 ML IV ONE (19:30)
[2019-06-10 19:56] LABS: BASOPHILS % 0.2 % (0.0-1.0); EOSINOPHILS % 0.1 % (0.0-6.0); HEMATOCRIT 39.9 % (34.2-44.1); HEMOGLOBIN 12.6 g/dL (12.0-16.0); LYMPHOCYTES # (AUTO) 2.3 (1.0-3.2); LYMPHOCYTES % 14.5 % (18.0-39.1); MEAN CORPUSCULAR HEMOGLOBIN 30.1 pg (28-32); MEAN CORPUSCULAR HGB CONC 31.6 g/dL (31-35); MEAN CORPUSCULAR VOLUME 95.2 fL (81-99); MONOCYTES # (AUTO) 1.4 (0.2-0.8); MONOCYTES % 9.1 % (4.4-11.3); NEUTROPHILS # (AUTO) 11.9 (2.1-6.9); NEUTROPHILS % 75.3 % (38.7-80.0); PLATELET COUNT 181 x10e3/uL (140-360); RED BLOOD COUNT 4.19 x10e6/uL (3.6-5.1); RED CELL DISTRIBUTION WIDTH 13.7 % (11.7-14.4)
[2019-06-10 19:57] LABS: BILIRUBIN,URINE NEGATIVE (NEGATIVE); CLARITY,URINE SL CLOUDY (CLEAR); COLOR,URINE YELLOW (YELLOW); LEUKOCYTE ESTERASE ,URINE TRACE (NEGATIVE); NITRITE,URINE POSITIVE (NEGATIVE); PROTEIN,URINE DIPSTICK 1+ (NEGATIVE); URINE UROBILINOGEN 2 mg/dL (0.2 - 1)
[2019-06-10 20:03] LABS: KETONES,URINE 2+ (NEGATIVE)
[2019-06-10 20:15] LABS: ALANINE AMINOTRANSFERASE 15 IU/L (0-55); ALBUMIN 3.1 g/dL (3.5-5.0); ALBUMIN/GLOBULIN RATIO 0.8 (0.8-2.0); ALKALINE PHOSPHATASE 73 IU/L (40-150); ANION GAP 13.5 mmol/L (8-16); BLOOD UREA NITROGEN 18 mg/dL (7-26); BUN/CREATININE RATIO 25 (6-25); CALCIUM 8.7 mg/dL (8.4-10.2); CARBON DIOXIDE 30 mmol/L (22-29); CHLORIDE 106 mmol/L (98-107); CREATININE, SERUM 0.71 mg/dL (0.57-1.11); EST GLOMERULAR FILTRATION RATE > 60 ML/MIN (60-); POTASSIUM 3.5 mmol/L (3.5-5.1); SODIUM 146 mmol/L (136-145)
[2019-06-10 20:17] LABS: BACTERIA,URINE MODERATE /HPF; EPITHELIAL CELLS,URINE RARE /LPF
--- NOTE | 2019-06-10 20:34 | Diagnostic Imaging Report ---
EXAMINATION: CHEST SINGLE (PORTABLE) INDICATION: Sepsis COMPARISON: Chest radiograph 02/26/2019 FINDINGS: AP view TUBES and LINES: None. LUNGS: Lungs are well inflated. Right perihilar and left midlung hazy opacity. Central bronchial wall thickening. PLEURA: No pleural effusion or pneumothorax. HEART AND MEDIASTINUM: The cardiomediastinal silhouette is borderline enlarged.. There are atherosclerotic calcifications within the aorta. BONES AND SOFT TISSUES: No acute osseous lesion. Soft tissues are unremarkable. Degenerative changes in the spine and shoulders. UPPER ABDOMEN: No free air under the diaphragm. There are cholecystectomy clips. IMPRESSION: Right hilar and left midlung hazy opacities may be atelectasis or pneumonia. Signed by: Noel Pickard DO on 06/10/2019 8:31 PM
[2019-06-10] MEDS ORDERED: DEXTROSE 50% SYRINGE 50 ML IV STA (20:35)
[2019-06-10 20:37] LABS: GLUCOSE 45 mg/dL (74-118)
[2019-06-10] MEDS ORDERED: DEXTROSE 50% SYRINGE 50 ML IV ONE (20:42)
[2019-06-10] MEDS ORDERED: DEXTROSE 5%/0.9% SOD CHL 1,000 ML IV ONE (20:42)
[2019-06-10] MEDS ORDERED: DEXTROSE 5%/0.45% SOD CHL 1,000 ML IV ONE (20:45)
[2019-06-10] MEDS ORDERED: AZITHROMYCIN 500MG/NS 250 ML 250 ML IV STA (20:49)
[2019-06-10] MEDS: CEFTRIAXONE SOD 1 GRAM/0.9% SOD CHL 50ML BAG IV SCH (21:00)
[2019-06-10] MEDS ORDERED: ONDANSETRON HCL INJ 2MG/ML 2ML 2 MG/ML VIAL IV PRN (21:00)
[2019-06-10] MEDS ORDERED: DEXTROSE 50% SYRINGE 50 ML IV PRN (21:00)
[2019-06-10] MEDS: AZITHROMYCIN 500MG/SOD CHL 0.9% 250ML BAG IV SCH (21:00)
[2019-06-10 21:13] LABS: CREATINE KINASE MB 2.3 ng/mL (0-5.0)
[2019-06-10] MEDS: INSULIN REGULAR, HUMAN 100 UNIT/1 ML 3ML VIAL SQ SCH (21:54)
--- NOTE | 2019-06-10 21:59 | NUR ---
BS - [address] EL NOTIFIED.
[2019-06-10 23:30] VITALS: BP 100/57
[2019-06-11] VITALS (8 sets, daily range): BP systolic 99–142; BP diastolic 44–68
[2019-06-11] MEDS ORDERED: SINEMET 25-1001 EACH PO (00:58)
[2019-06-11] MEDS: ACETAMINOPHEN 650 MG SUPP PR PRN (04:24)
[2019-06-11 06:12] LABS: CREATINE KINASE MB 2.3 ng/mL (0-5.0)
--- NOTE | 2019-06-11 07:11 | NUR ---
pt lying supine , resp even and unlabored at this time, pt awaken to name and touch, call light in reach, will cont to monitor.
[2019-06-11] MEDS: INSULIN REGULAR, HUMAN 100 UNIT/1 ML 3ML VIAL SQ SCH ×4 (07:30→21:00)
[2019-06-11] MEDS: SUCRALFATE 1 GM/10 ML SUSP PO SCH ×3 (11:30→21:16)
[2019-06-11] MEDS: ALBUTEROL/IPRATROPIUM 3 ML NEB NEB SCH ×2 (12:45→20:05)
[2019-06-11] MEDS: PEG OP SCH ×2 (15:00→20:50)
[2019-06-11] MEDS: PROPYLENE GLYCOL OP SCH ×2 (15:00→20:50)
[2019-06-11] MEDS: CARBIDOPA/LEVODOPA 25/100 TAB PO SCH ×2 (15:00→21:16)
[2019-06-11 15:15] LABS: CREATINE KINASE MB 2.9 ng/mL (0-5.0)
--- NOTE | 2019-06-11 15:51 | NUR ---
pt has family member, at bedside pt resp even and unlabored. call light in reach.
--- NOTE | 2019-06-11 19:15 | NUR ---
report given to oncoming nurse. pt stable.
[2019-06-11] MEDS: CEFTRIAXONE SOD 1 GRAM/0.9% SOD CHL 50ML BAG IV SCH (21:16)
[2019-06-11] MEDS: AZITHROMYCIN 500MG/SOD CHL 0.9% 250ML BAG IV SCH (21:55)
[2019-06-12] VITALS (9 sets, daily range): BP systolic 99–177; BP diastolic 51–69
[2019-06-12] MEDS: ALBUTEROL/IPRATROPIUM 3 ML NEB NEB SCH ×3 (00:50→14:40)
[2019-06-12] MEDS: ACETAMINOPHEN 650 MG SUPP PR PRN (00:58)
[2019-06-12] MEDS ORDERED: SODIUM CHLORIDE 0.9% 250ML 250 ML ONE (04:11)
[2019-06-12 05:24] LABS: BASOPHILS % 0.2 % (0.0-1.0); EOSINOPHILS # (AUTO) 0.1 (0.0-0.4); EOSINOPHILS % 0.5 % (0.0-6.0); LYMPHOCYTES # (AUTO) 2.3 (1.0-3.2); LYMPHOCYTES % 19.8 % (18.0-39.1); MEAN CORPUSCULAR HEMOGLOBIN 29.9 pg (28-32); MEAN CORPUSCULAR HGB CONC 31.3 g/dL (31-35); MEAN CORPUSCULAR VOLUME 95.5 fL (81-99); MONOCYTES % 8.8 % (4.4-11.3); PLATELET COUNT 152 x10e3/uL (140-360); RED BLOOD COUNT 3.35 x10e6/uL (3.6-5.1); RED CELL DISTRIBUTION WIDTH 13.2 % (11.7-14.4)
[2019-06-12 05:57] LABS: ANION GAP 10.1 mmol/L (8-16); BLOOD UREA NITROGEN 10 mg/dL (7-26); BUN/CREATININE RATIO 17 (6-25); CALCIUM 7.7 mg/dL (8.4-10.2); CARBON DIOXIDE 27 mmol/L (22-29); CHLORIDE 109 mmol/L (98-107); CREATININE, SERUM 0.58 mg/dL (0.57-1.11); EST GLOMERULAR FILTRATION RATE > 60 ML/MIN (60-); GLUCOSE 111 mg/dL (74-118); POTASSIUM 3.1 mmol/L (3.5-5.1); SODIUM 143 mmol/L (136-145)
[2019-06-12] MEDS: LEVOTHYROXINE SODIUM 100 MCG TAB PO SCH (06:07)
[2019-06-12] MEDS: INSULIN REGULAR, HUMAN 100 UNIT/1 ML 3ML VIAL SQ SCH ×4 (07:30→21:00)
[2019-06-12] MEDS: PEG OP SCH ×3 (09:00→21:00)
[2019-06-12] MEDS: PROPYLENE GLYCOL OP SCH ×3 (09:00→21:00)
--- NOTE | 2019-06-12 09:39 | Diagnostic Imaging Report ---
EXAMINATION: CHEST 2 VIEWS INDICATION: Fever COMPARISON: Chest radiograph of 06/10/2019 FINDINGS: Note is made that the original PA image was incorrectly flipped and labeled. This was corrected and an new PA image was uploaded. LINES/TUBES:EKG leads overlie the chest. LUNGS:The lungs are moderately inflated. Increasing confluent airspace opacity at the lingula and left lower lobe. No focal right lung consolidation. PLEURA:No pleural effusion or pneumothorax. MEDIASTINUM:The cardiomediastinal silhouette appears normal in size and shape. Atherosclerotic calcifications of the thoracic aorta. BONES/SOFT TISSUES:No acute osseous injury. ABDOMEN:No free air under the diaphragm. IMPRESSION: Worsening left lingular and left lower lobe pneumonia. Signed by: Trip Martin MD on 06/12/2019 9:36 AM
--- NOTE | 2019-06-12 10:00 | NUR ---
Pt is day 2 obs. Sent to R1 for review.
[2019-06-12] MEDS: DOCUSATE SODIUM 100 MG CAP PO SCH (10:10)
[2019-06-12] MEDS: CARBIDOPA/LEVODOPA 25/100 TAB PO SCH ×3 (10:10→22:28)
[2019-06-12] MEDS: SUCRALFATE 1 GM/10 ML SUSP PO SCH ×4 (10:11→22:28)
--- NOTE | 2019-06-12 13:36 | NUR ---
R1 recommending inpatient for worsening pneumonia. CM called and spoke to Dr. Lawton and received inpatient order.
--- NOTE | 2019-06-12 14:12 | NUR ---
WOUND CARE CONSULT FOR 83 YO FEMALE HX CONFUSION, HYPOGLYCEMIA ,UTI LARON 11 ON STRICT PUP ON ALTERNATING PRESSURE PATIENT SKIN ASSESSMENT COMPLETE PATIENT PRESENTS WITH STAGE 2 SACRAL ULCERATION 2.5KAE0CFK.1CM RIMA SKIN RED BUT BLANCHABLE RECOMMENDATIONS:NURSING TO CONTINUE TO MAINTAIN STRICT PUP INTERVENTIONS AND ALTERNATING PRESSURE SURFACE NURSING TO CONTINUE TO ASSIST PATIENT TO SIT DURING MEALS AND MUCH TOLERATED NURSING TO CONTINUE TO MAINTAIN BILATERAL HEEL PROTECTORS AND PILLOW SUSPENSION OF HEELS NURSING TO CONTINUE TO MONITOR AND KEEP PATIENT RIMA AREA CLEAN AND DRY NURSING TO APPLY DAILY VENELEX OINTMENT TO STAGE 2 SACRAL WOUND COVER WITH ALLEVYN FOAM Addendum: 06/12/19 at 1421 by Nikunj Mueller RN Amended: Links added.
--- NOTE | 2019-06-12 15:14 | NUR ---
SPOKE WITH FACILITY ABOUT PT, SHE IS [facility] UNDER HER MEDICAID PORTION AT FACILITY SHE HAS EXHAUSTED HER MEDICARE DAYS AT THE FACILITY, DAREK THE ADMISSION DIRECTOR STATES THEY WILL STILL BE ABLE TO PROVIDE THE IV ABX UNDER HER MEDICAID RUG AND GET IT PAID FOR, WHEN SHE IS READY SHE WILL RETURN TO [address], [facility] [address] CALL REPORT TO [phone] TO GO TO ROOM 111B UNDER DR JOHN WELSH.
[2019-06-12] MEDS ORDERED: ONDANSETRON HCL 4 MG ORAL DISINTEGRATING TAB PO PRN (15:15)
[2019-06-12] MEDS ORDERED: POTASSIUM CHLORIDE 20MEQ/100ML 100 ML IV ONE (16:45)
[2019-06-12] MEDS ORDERED: GENTAMICIN 60MG/NS 50ML 50 ML IV ONE (17:30)
--- NOTE | 2019-06-12 17:40 | NUR ---
Nutrition Intervention Note RD Recommendation(s) for Physician: -Recommend Ensure pudding with meals -Fotser BID for wound healing -Continue diabetic diet and pureed/nectar thick diet consistency per ST Plan of Care: RD following, monitoring for tolerance and adequacy Nutrition reason for involvement: pressure ulcer RD Assessment: (06/12/19) Pt is an 83 year old female admitted with confusion, hypoglycemia, pneumonia, and UTI. Attempted to talk to pt, but she was confused at time of visit and there were no family members present. Per documentation, pt has been consuming 0-25% of meals during admission. Per wt history in chart, pt weighed 125-127 lbs in February 2019. Pt currently has a wt of [address] evaluated pt and recommended a pureed/nectar thick diet consistency. It is also noted that pt has a stage 2 pressure ulcer to sacrum in chart. Will continue to monitor. Principal Problems/Diagnoses: confusion, hypoglycemia, pneumonia, and UTI PMH: spinal stenosis with chronic bilateral leg weakness, GERD, hypothyroid, type 2 diabetes, degenerative joint disease I/O: (06/11): 250/- GI: last BM not recorded Skin: stage 2 pressure ulcer to sacrum per chart Labs: (06/12/19) BNP 392 Meds: (06/12/19) carafate, colace, levothyroxine, azithromycin, NaCl, insulin regular, zofran Ht: 62 inches Wt:125 lbs BMI: 22.9 kg/m2 IBW: 110 lbs Malnutrition Evaluation (06/12/19) The patient does not meet criteria for a specified degree of malnutrition at this time. Will re-evaluate at follow-up as appropriate. Nutrition Prescription (Diet Order): ADA Diet with pureed/nectar thick consistency Estimated Nutritional Needs: 4316-4621 calories/day (25-35 kcal/kg CBW) 57-85 g protein/day (1-1.5 g pro/kg CBW) Diet Adequacy: Not meeting calorie needs, Not meeting protein needs Tolerance: Unable to assess Diet Education Needs Assessment: Diet education not indicated Nutrition Care Level: low Nutrition Diagnosis: Increased nutrient needs related to increased demand for protein and kcal as evidenced by stage 2 sacral pressure ulcer. Goal: Patient will meet 75-100% of estimated needs by follow up Progress: N/A Interventions: -carbohydrate, texture modified diet, Commercial food and liquid supplement Monitoring/Evaluation: -Total energy intake, Total protein intake, Modified diet, Nutrition supplement, Weight change Signed: Kandi Holder RD, LD
[2019-06-12] MEDS: CEFTRIAXONE SOD 1 GRAM/0.9% SOD CHL 50ML BAG IV SCH (22:27)
[2019-06-12] MEDS: MULTIVITAMINS- 12 INJECTION 10 ML in SODIUM CHLORIDE 0.9% 1000ML 1,000 ML IV SCH (22:28)
[2019-06-13] VITALS (10 sets, daily range): BP systolic 145–181; BP diastolic 62–75
[2019-06-13 05:13] LABS: HEMATOCRIT 33.2 % (34.2-44.1); HEMOGLOBIN 10.3 g/dL (12.0-16.0)
[2019-06-13] MEDS: LEVOTHYROXINE SODIUM 100 MCG TAB PO SCH (05:19)
[2019-06-13 05:39] LABS: ANION GAP 12.5 mmol/L (8-16); BLOOD UREA NITROGEN 9 mg/dL (7-26); BUN/CREATININE RATIO 16 (6-25); CALCIUM 7.9 mg/dL (8.4-10.2); CARBON DIOXIDE 25 mmol/L (22-29); CHLORIDE 107 mmol/L (98-107); CREATININE, SERUM 0.57 mg/dL (0.57-1.11); EST GLOMERULAR FILTRATION RATE > 60 ML/MIN (60-); GLUCOSE 105 mg/dL (74-118); POTASSIUM 3.5 mmol/L (3.5-5.1); SODIUM 141 mmol/L (136-145)
[2019-06-13] MEDS: INSULIN REGULAR, HUMAN 100 UNIT/1 ML 3ML VIAL SQ SCH ×4 (07:30→20:25)
[2019-06-13] MEDS: PEG OP SCH ×3 (09:00→20:33)
[2019-06-13] MEDS: MULTIVITAMINS/MINERALS TAB PO SCH (09:00)
[2019-06-13] MEDS: SUCRALFATE 1 GM/10 ML SUSP PO SCH ×4 (09:00→20:33)
[2019-06-13] MEDS: PROPYLENE GLYCOL OP SCH ×3 (09:00→20:33)
[2019-06-13] MEDS: DOCUSATE SODIUM 100 MG CAP PO SCH (09:00)
[2019-06-13] MEDS: CARBIDOPA/LEVODOPA 25/100 TAB PO SCH ×3 (09:00→20:33)
[2019-06-13] MEDS: DOXYCYCLINE HYCLATE TABLET 100 MG TAB PO SCH (10:57)
[2019-06-13] MEDS: HEPARIN SOD (PORCINE) 5,000 UNIT/ML VIAL SC SCH ×2 (11:00→20:35)
[2019-06-13] MEDS: IPRATROPIUM BROMIDE 0.02% 2.5 ML NEB NEB SCH ×2 (11:14→19:20)
--- NOTE | 2019-06-13 11:18 | Consultation ---
DATE OF CONSULTATION: Pulmonary Consultation HISTORY OF PRESENT ILLNESS: Patient of Dr. Lawton. Charming, but unfortunate 83-year-old woman, alf resident, admitted with altered mental status, found to be hypoglycemic. She has had fever and hypotension, had a left lower lobe pneumonia. She has history of hypertension, diabetes, hypothyroidism, vertigo, spinal stenosis, severe degenerative disease, joints, gastroesophageal reflux, depression by history. ALLERGIES: ACCORDING TO THE RECORD SHE IS ALLERGIC TO PENICILLIN, SULFA, AND IODINE. MEDICATIONS: In the alf included Tylenol, Sinemet, Yamileth, insulin, Altace. PAST SURGICAL HISTORY: She has had hysterectomy in the past, back surgery, foot surgery, and gastric surgery. SOCIAL HISTORY: She has been in the alf. Never smoked. Born in [place]. 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 PHYSICAL EXAMINATION: VITAL SIGNS: Temperature on admission was 100.4, and blood pressure was as low as . GENERAL: Frail, did relate part of her history and then came to . LUNGS: Diminished breath sounds. HEART: Regular rhythm. ABDOMEN: Nontender. EXTREMITIES: Contracted. IMPRESSION: 1. Healthcare-acquired pneumonia. 2. Diabetes. 3. Parkinsonism. 4. Degenerative joint disease. 5. Nonsustained ventricular tachycardia. PLAN: Plan is to add anti-Staph cover with doxycycline. Continue Rocephin. White count has fallen. She is afebrile. X-ray shows deterioration which is not unusual in pneumonia, lagging behind to the point of improvement. She will require careful followup. Speech Therapy evaluation, mobilization. Consider subcutaneous heparin, low-dose bronchodilators. Thank you for this kind referral. Dawson Buenrostro MD DS/MODL /[id number]
--- NOTE | 2019-06-13 13:25 | Diagnostic Imaging Report ---
PROCEDURE: X-RAY MODIFIED BARIUM SWALLOW COMPARISON: None. INDICATION: Aspiration Radiation Details: Fluoroscopy time: 1.6 minutes Cumulative dose: 3.1 mGy DISCUSSION: Fluoroscopic examination was performed in conjunction with speech pathology during swallowing a variety of thin and thick liquid consistencies. Provided images demonstrate no laryngeal penetration or aspiration. CONCLUSION: Modified barium swallow demonstrating no laryngeal penetration or aspiration. Please refer to the speech pathology report for further details. Signed by: Trip Martin MD on 06/13/2019 1:22 PM
[2019-06-13] MEDS: MULTIVITAMINS- 12 INJECTION 10 ML in SODIUM CHLORIDE 0.9% 1000ML 1,000 ML IV SCH (13:42)
--- NOTE | 2019-06-13 14:52 | NUR ---
SPOKE WITH FACILITY, PT IS DNR HERE THEY WERE ABLE TO FAX ME THE OOH DNR, FILED IN CHART WITH A STICKER FOR RECORDS.
[2019-06-13] MEDS ORDERED: ALBUTEROL SULF 0.083% NEB SOLN 3 ML NEB NEB SCH (15:00)
--- NOTE | 2019-06-13 15:01 | NUR ---
CM attempted to do DPA. Pt confused, no family at bedside. Cm called pt's son Anshu Barlow at [phone] and left VM. Awaiting callback.
--- NOTE | 2019-06-13 15:39 | NUR ---
DPA COMPLETED AND IN PROCESS EDUCATED ABOUT IMM, SIGNED, FILED IN CHART, WITH COPY LEFT WITH FAMILY AT BEDSIDE. GAVE VERBAL CONSENT OF UNDERSTANDING
--- NOTE | 2019-06-13 15:43 | NUR ---
SON LAUREN GAVE PERMISSION TO RETURN HIS MOTHER TO [address], [facility] [phone], FILED CHOICE IN CHART
[2019-06-13] MEDS: BALSAM PERU/CASTOR OIL 60 GM OINT...G. TP SCH (18:42)
[2019-06-13] MEDS: CEFTRIAXONE SOD 1 GRAM/0.9% SOD CHL 50ML BAG IV SCH (20:33)
--- NOTE | 2019-06-13 22:15 | NUR ---
Patient received lying in bed. AAO x 2. Patient had no complaints of pain. Respirations even and nonlabored on 3L NC. Fall precautions implemented. Patient instructed to call for assistance when needed. Call light within reach.
[2019-06-14] VITALS (10 sets, daily range): BP systolic 125–184; BP diastolic 60–83
[2019-06-14 05:00] LABS: BASOPHILS % 0.2 % (0.0-1.0); EOSINOPHILS # (AUTO) 0.2 (0.0-0.4); EOSINOPHILS % 2.4 % (0.0-6.0); HEMATOCRIT 31.8 % (34.2-44.1); HEMOGLOBIN 10.1 g/dL (12.0-16.0); LYMPHOCYTES # (AUTO) 1.5 (1.0-3.2); LYMPHOCYTES % 17.2 % (18.0-39.1); MEAN CORPUSCULAR HEMOGLOBIN 29.9 pg (28-32); MEAN CORPUSCULAR HGB CONC 31.8 g/dL (31-35); MEAN CORPUSCULAR VOLUME 94.1 fL (81-99); MONOCYTES # (AUTO) 0.9 (0.2-0.8); MONOCYTES % 9.7 % (4.4-11.3); NEUTROPHILS # (AUTO) 6.1 (2.1-6.9); NEUTROPHILS % 68.7 % (38.7-80.0); PLATELET COUNT 176 x10e3/uL (140-360); RED BLOOD COUNT 3.38 x10e6/uL (3.6-5.1); RED CELL DISTRIBUTION WIDTH 13.2 % (11.7-14.4)
[2019-06-14 05:22] LABS: ANION GAP 11.3 mmol/L (8-16); BLOOD UREA NITROGEN 7 mg/dL (7-26); BUN/CREATININE RATIO 13 (6-25); CALCIUM 7.8 mg/dL (8.4-10.2); CARBON DIOXIDE 27 mmol/L (22-29); CHLORIDE 105 mmol/L (98-107); CREATININE, SERUM 0.56 mg/dL (0.57-1.11); EST GLOMERULAR FILTRATION RATE > 60 ML/MIN (60-); GLUCOSE 85 mg/dL (74-118); POTASSIUM 3.3 mmol/L (3.5-5.1); SODIUM 140 mmol/L (136-145)
[2019-06-14] MEDS: LEVOTHYROXINE SODIUM 100 MCG TAB PO SCH (06:00)
[2019-06-14] MEDS: IPRATROPIUM BROMIDE 0.02% 2.5 ML NEB NEB SCH ×2 (07:00→19:45)
--- NOTE | 2019-06-14 07:00 | NUR ---
Patient resting comfortably. Shift report given to oncoming nurse.
[2019-06-14] MEDS: INSULIN REGULAR, HUMAN 100 UNIT/1 ML 3ML VIAL SQ SCH ×4 (07:30→21:00)
[2019-06-14] MEDS: PROPYLENE GLYCOL OP SCH ×4 (09:00→21:00)
[2019-06-14] MEDS: PEG OP SCH ×4 (09:00→21:00)
[2019-06-14] MEDS: SUCRALFATE 1 GM/10 ML SUSP PO SCH ×4 (09:19→22:08)
[2019-06-14] MEDS: DOXYCYCLINE HYCLATE TABLET 100 MG TAB PO SCH (09:19)
[2019-06-14] MEDS: CARBIDOPA/LEVODOPA 25/100 TAB PO SCH ×3 (09:19→22:08)
[2019-06-14] MEDS: MULTIVITAMINS/MINERALS TAB PO SCH (09:19)
[2019-06-14] MEDS: DOCUSATE SODIUM 100 MG CAP PO SCH (09:19)
[2019-06-14] MEDS: BALSAM PERU/CASTOR OIL 60 GM OINT...G. TP SCH (09:20)
[2019-06-14] MEDS: MULTIVITAMINS- 12 INJECTION 10 ML in SODIUM CHLORIDE 0.9% 1000ML 1,000 ML IV SCH (09:20)
[2019-06-14] MEDS: HEPARIN SOD (PORCINE) 5,000 UNIT/ML VIAL SC SCH ×2 (09:20→22:08)
[2019-06-14] MEDS ORDERED: POTASSIUM CHLORIDE 20 MEQ TAB CR PO ONE (10:45)
[2019-06-14 16:04] LABS: BILIRUBIN,URINE NEGATIVE (NEGATIVE); CLARITY,URINE SL CLOUDY (CLEAR); COLOR,URINE YELLOW (YELLOW); KETONES,URINE 1+ (NEGATIVE); LEUKOCYTE ESTERASE ,URINE NEGATIVE (NEGATIVE); NITRITE,URINE NEGATIVE (NEGATIVE); PROTEIN,URINE DIPSTICK NEGATIVE (NEGATIVE); URINE UROBILINOGEN 0.2 mg/dL (0.2 - 1)
[2019-06-14 16:21] LABS: BACTERIA,URINE MANY /HPF; EPITHELIAL CELLS,URINE MANY /LPF; RBC,URINE 0-5 /HPF (0-5)
--- NOTE | 2019-06-14 18:34 | NUR ---
Resting in bed, side rails upx2, call light within reach, bed alarm on. Resting in bed with eyes closed. Respirations even and unlabored. O2 3L NC. Report to be given to oncoming nurse of patient's status.
--- NOTE | 2019-06-14 19:25 | NUR ---
Patient received asleep in bed. Arousable by tactile stimuli. No signs of pain or respiratory distress. Infuvite infusing at 30 cc/hr. Safety measures in place. Call light within reach.
--- NOTE | 2019-06-14 21:31 | Diagnostic Imaging Report ---
EXAM: US ABDOMEN COMPLETE INDICATION: Recurrent UTI. COMPARISON: None TECHNIQUE: Transverse and longitudinal pierce scale and color doppler sonographic images of the abdomen was performed. FINDINGS: LIVER 12.8 cm in the right midclavicular line. Normal echogenicity of the liver with normal contour, no masses. SPLEEN 7.3 cm in maximum diameter. Normal echogenicity, no masses. GALLBLADDER Status post cholecystectomy. BILE DUCTS No intra nor extra-hepatic biliary dilation. Common bile duct measures 0.5 cm PANCREAS: Limited evaluation due to overlying bowel gas. RIGHT KIDNEY: Measures 8.7 cm Echogenicity: Normal Collecting System: No hydronephrosis Stones: None Cyst/Mass: None LEFT KIDNEY: Measures 8.7 cm Echogenicity: Normal Collecting System: No hydronephrosis Stones: None Cyst/Mass: None BLADDER: Partially decompressed. The bladder volume is 76.8 cc. Bilateral ureteral jets are present. VESSELS: Aorta: Limited evaluation due to overlying bowel gas. Inferior Vena Cava: Visualized portions are normal Main Portal Vein: 0.9 cm, normal size with hepatopetal flow. FREE FLUID: None IMPRESSION: No evidence of hydronephrosis or nephrolithiasis. Status post cholecystectomy. Signed by: Dr. Alonzo Schaefer MD on 06/14/2019 9:27 PM
[2019-06-14] MEDS: CEFTRIAXONE SOD 1 GRAM/0.9% SOD CHL 50ML BAG IV SCH (22:10)
[2019-06-15] VITALS (8 sets, daily range): BP systolic 134–176; BP diastolic 63–79
--- NOTE | 2019-06-15 03:40 | NUR ---
Patient took off her nasal cannula twice. Nasal canula in place on 3L. Oxygen saturation at 89%. Will continue to monitor.
[2019-06-15 05:56] LABS: ANION GAP 15.7 mmol/L (8-16); BLOOD UREA NITROGEN 9 mg/dL (7-26); BUN/CREATININE RATIO 15 (6-25); CALCIUM 7.8 mg/dL (8.4-10.2); CARBON DIOXIDE 26 mmol/L (22-29); CHLORIDE 106 mmol/L (98-107); EST GLOMERULAR FILTRATION RATE > 60 ML/MIN (60-); GLUCOSE 86 mg/dL (74-118); POTASSIUM 3.7 mmol/L (3.5-5.1); SODIUM 144 mmol/L (136-145)
[2019-06-15] MEDS: LEVOTHYROXINE SODIUM 100 MCG TAB PO SCH (06:00)
[2019-06-15] MEDS: IPRATROPIUM BROMIDE 0.02% 2.5 ML NEB NEB SCH ×2 (06:30→20:00)
--- NOTE | 2019-06-15 07:00 | NUR ---
Walking rounds done. Shift report given to oncoming nurse.
--- NOTE | 2019-06-15 07:00 | NUR ---
BEDSIDE SHIFT REPORT RECEIVED FROM NIGHT RN. PT DENIES NEEDS AT THIS TIME.
[2019-06-15] MEDS: INSULIN REGULAR, HUMAN 100 UNIT/1 ML 3ML VIAL SQ SCH ×4 (07:30→21:00)
[2019-06-15] MEDS: SUCRALFATE 1 GM/10 ML SUSP PO SCH ×4 (08:29→21:00)
[2019-06-15] MEDS: CARBIDOPA/LEVODOPA 25/100 TAB PO SCH ×3 (08:30→21:00)
[2019-06-15] MEDS: MULTIVITAMINS/MINERALS TAB PO SCH (08:30)
[2019-06-15] MEDS: DOXYCYCLINE HYCLATE TABLET 100 MG TAB PO SCH (08:30)
[2019-06-15] MEDS: PROPYLENE GLYCOL OP SCH ×3 (08:30→21:00)
[2019-06-15] MEDS: PEG OP SCH ×3 (08:30→21:00)
[2019-06-15] MEDS: DOCUSATE SODIUM 100 MG CAP PO SCH (08:30)
[2019-06-15] MEDS: BALSAM PERU/CASTOR OIL 60 GM OINT...G. TP SCH (08:30)
[2019-06-15] MEDS: HEPARIN SOD (PORCINE) 5,000 UNIT/ML VIAL SC SCH ×2 (08:31→21:00)
[2019-06-15] MEDS: MULTIVITAMINS- 12 INJECTION 10 ML in SODIUM CHLORIDE 0.9% 1000ML 1,000 ML IV SCH (10:42)
--- NOTE | 2019-06-15 19:25 | NUR ---
Patient received sitting up in bed. AAO x 1. No acute distress noted. Call light within reach.
[2019-06-15] MEDS: CEFTRIAXONE SOD 1 GRAM/0.9% SOD CHL 50ML BAG IV SCH (21:00)
[2019-06-16] VITALS (8 sets, daily range): BP systolic 125–155; BP diastolic 58–72
[2019-06-16 05:14] LABS: BASOPHILS # (AUTO) 0.1 (0.0-0.1); BASOPHILS % 0.4 % (0.0-1.0); EOSINOPHILS # (AUTO) 0.1 (0.0-0.4); HEMATOCRIT 33.3 % (34.2-44.1); HEMOGLOBIN 10.4 g/dL (12.0-16.0); LYMPHOCYTES # (AUTO) 1.9 (1.0-3.2); LYMPHOCYTES % 14.9 % (18.0-39.1); MEAN CORPUSCULAR HEMOGLOBIN 29.5 pg (28-32); MEAN CORPUSCULAR HGB CONC 31.2 g/dL (31-35); MEAN CORPUSCULAR VOLUME 94.6 fL (81-99); MONOCYTES # (AUTO) 1.2 (0.2-0.8); MONOCYTES % 9.6 % (4.4-11.3); NEUTROPHILS # (AUTO) 8.7 (2.1-6.9); NEUTROPHILS % 70.2 % (38.7-80.0); PLATELET COUNT 215 x10e3/uL (140-360); RED BLOOD COUNT 3.52 x10e6/uL (3.6-5.1)
[2019-06-16 05:30] LABS: ANION GAP 13.6 mmol/L (8-16); BLOOD UREA NITROGEN 12 mg/dL (7-26); BUN/CREATININE RATIO 21 (6-25); CARBON DIOXIDE 27 mmol/L (22-29); CHLORIDE 102 mmol/L (98-107); CREATININE, SERUM 0.57 mg/dL (0.57-1.11); EST GLOMERULAR FILTRATION RATE > 60 ML/MIN (60-); GLUCOSE 111 mg/dL (74-118); POTASSIUM 3.6 mmol/L (3.5-5.1); SODIUM 139 mmol/L (136-145)
[2019-06-16] MEDS: LEVOTHYROXINE SODIUM 100 MCG TAB PO SCH (06:00)
[2019-06-16] MEDS: IPRATROPIUM BROMIDE 0.02% 2.5 ML NEB NEB SCH ×2 (06:30→21:33)
--- NOTE | 2019-06-16 07:00 | NUR ---
Patient resting comfortably. Shift report given to oncoming nurse about patient's status.
[2019-06-16] MEDS: SUCRALFATE 1 GM/10 ML SUSP PO SCH ×4 (07:30→21:40)
[2019-06-16] MEDS: INSULIN REGULAR, HUMAN 100 UNIT/1 ML 3ML VIAL SQ SCH ×4 (07:30→21:00)
[2019-06-16] MEDS: CARBIDOPA/LEVODOPA 25/100 TAB PO SCH ×3 (08:30→21:40)
[2019-06-16] MEDS: HEPARIN SOD (PORCINE) 5,000 UNIT/ML VIAL SC SCH ×2 (08:30→21:00)
[2019-06-16] MEDS: MULTIVITAMINS/MINERALS TAB PO SCH (08:30)
[2019-06-16] MEDS: DOXYCYCLINE HYCLATE TABLET 100 MG TAB PO SCH (08:30)
[2019-06-16] MEDS: DOCUSATE SODIUM 100 MG CAP PO SCH (08:54)
--- NOTE | 2019-06-16 08:58 | Diagnostic Imaging Report ---
EXAMINATION: CHEST 2 VIEWS INDICATION: Fever, pneumonia COMPARISON: Chest radiograph 06/12/2019 FINDINGS: LINES/TUBES:EKG leads overlie the chest. LUNGS:The lungs are moderately inflated. There is perihilar fullness and indistinctness of the pulmonary vasculature. Significant interval improvement in left lung confluent airspace opacity. PLEURA:No pleural effusion or pneumothorax. MEDIASTINUM:The cardiomediastinal silhouette appears unchanged in size and shape. Atherosclerotic calcifications of the thoracic aorta. BONES/SOFT TISSUES:No acute osseous injury. ABDOMEN:No free air under the diaphragm. Status post cholecystectomy. IMPRESSION: Significant interval improvement in confluent left lung airspace opacity. Mild interstitial pulmonary edema. Signed by: Trip Martin MD on 06/16/2019 8:54 AM
[2019-06-16] MEDS: PROPYLENE GLYCOL OP SCH ×3 (09:00→21:00)
[2019-06-16] MEDS: PEG OP SCH ×3 (09:00→21:00)
--- NOTE | 2019-06-16 10:23 | NUR ---
Spoke to Dr. Lawton this morning regarding plan of care. He states that pt has worsening WBC. He's waiting on CXR results. Would like to speak to pt's family when they get here. He asked that CM give pt his phone number so they can call him to discuss plan of care. Dr. Lawton states he thinks pt may need hospice. CM spoke with pt's son Juan Pablo at bedside. Gave him Dr. Lawton's phone number. He will call him and let CM know once he speaks with MD. CM's contact number provided to Juan Pablo.
[2019-06-16] MEDS: BALSAM PERU/CASTOR OIL 60 GM OINT...G. TP SCH (10:30)
--- NOTE | 2019-06-16 14:13 | NUR ---
Flex called and spoke with pt's son Juan Pablo. He stated that he spoke with Dr. Lawton. They discussed possibility of hospice, but Juan Pablo states that was not very clear regarding pt's prognosis. He will call Dr. Lawton again and will call FLEX back.
--- NOTE | 2019-06-16 14:47 | NUR ---
SPOKE WITH JAVAD [phone] SON ABOUT HOSPICE ORDER, CALLED AND SPOKE WITH [facility] [phone] AND SHE STATES THAT THE BUILDING HAS CONTRACTS WITH [facility], [facility] OR [facility]. SHE STATES TO GIVE SON HER PHONE NUMBER IF HE HAS ANY QUESTIONS. JAVAD STATES TO [place] THE ONES IN CONTRACT WITH BUILDING AND LEAVE BOOK IN ROOM. THEY WILL LOOK AT TOMORROW AND LET CASE MANAGEMENT KNOW WHICH ONE FOR CHOICE. THE MEDICARE WITH PAY FOR THE HOSPICE AND HER MEDICAID IS ALREADY ESTABLISHED FOR GROUP HOME PLACEMENT AT [facility] AND WILL RETURN TO HER ROOM DOCUMENTED PRIOR AFTER HOSPICE IS SELECTED AND SET UP.
[2019-06-16] MEDS: CEFTRIAXONE SOD 1 GRAM/0.9% SOD CHL 50ML BAG IV SCH (21:40)
[2019-06-16] MEDS: MULTIVITAMINS- 12 INJECTION 10 ML in SODIUM CHLORIDE 0.9% 1000ML 1,000 ML IV SCH (21:40)
[2019-06-17] VITALS (8 sets, daily range): BP systolic 103–189; BP diastolic 60–77
--- NOTE | 2019-06-17 05:21 | NUR ---
Wound dressing performed to sacrum per MD's orders. Patient tolerated well. Patient re-positioned and made comfortable.
[2019-06-17] MEDS: LEVOTHYROXINE SODIUM 50 MCG TAB PO SCH (06:00)
[2019-06-17 06:02] LABS: BASOPHILS % 0.3 % (0.0-1.0); EOSINOPHILS # (AUTO) 0.2 (0.0-0.4); EOSINOPHILS % 1.5 % (0.0-6.0); HEMATOCRIT 33.9 % (34.2-44.1); HEMOGLOBIN 10.3 g/dL (12.0-16.0); LYMPHOCYTES % 17.6 % (18.0-39.1); MEAN CORPUSCULAR HEMOGLOBIN 28.9 pg (28-32); MEAN CORPUSCULAR HGB CONC 30.4 g/dL (31-35); MONOCYTES % 8.9 % (4.4-11.3); NEUTROPHILS # (AUTO) 7.8 (2.1-6.9); PLATELET COUNT 235 x10e3/uL (140-360); RED BLOOD COUNT 3.57 x10e6/uL (3.6-5.1); RED CELL DISTRIBUTION WIDTH 13.1 % (11.7-14.4)
[2019-06-17 06:20] LABS: ANION GAP 12.3 mmol/L (8-16); BLOOD UREA NITROGEN 10 mg/dL (7-26); BUN/CREATININE RATIO 19 (6-25); CALCIUM 7.9 mg/dL (8.4-10.2); CARBON DIOXIDE 28 mmol/L (22-29); CHLORIDE 105 mmol/L (98-107); CREATININE, SERUM 0.53 mg/dL (0.57-1.11); EST GLOMERULAR FILTRATION RATE > 60 ML/MIN (60-); GLUCOSE 97 mg/dL (74-118); POTASSIUM 3.3 mmol/L (3.5-5.1); SODIUM 142 mmol/L (136-145)
[2019-06-17] MEDS: IPRATROPIUM BROMIDE 0.02% 2.5 ML NEB NEB SCH ×2 (07:00→19:43)
[2019-06-17] MEDS: SUCRALFATE 1 GM/10 ML SUSP PO SCH ×4 (07:30→21:11)
[2019-06-17] MEDS: INSULIN REGULAR, HUMAN 100 UNIT/1 ML 3ML VIAL SQ SCH ×4 (07:30→21:14)
[2019-06-17] MEDS: DOXYCYCLINE HYCLATE TABLET 100 MG TAB PO SCH (09:00)
[2019-06-17] MEDS: PROPYLENE GLYCOL OP SCH ×3 (09:00→21:00)
[2019-06-17] MEDS: CARBIDOPA/LEVODOPA 25/100 TAB PO SCH ×3 (09:00→21:11)
[2019-06-17] MEDS: MULTIVITAMINS/MINERALS TAB PO SCH (09:00)
[2019-06-17] MEDS: DOCUSATE SODIUM 100 MG CAP PO SCH (09:00)
[2019-06-17] MEDS: PEG OP SCH ×3 (09:00→21:00)
[2019-06-17] MEDS: HEPARIN SOD (PORCINE) 5,000 UNIT/ML VIAL SC SCH ×2 (09:32→21:17)
[2019-06-17] MEDS: BALSAM PERU/CASTOR OIL 60 GM OINT...G. TP SCH (09:32)
--- NOTE | 2019-06-17 10:57 | NUR ---
Spoke with Mily Almeida [phone], and Anshu [phone] about their choice for hospice. Family has chosen [facility], but would like to speak with the entry level account representative for the company before making their final decision. Called [facility] at [phone] about new referral, and they took this 's info and stated the on-call would be reaching out.
--- NOTE | 2019-06-17 12:26 | NUR ---
Clinicals faxed to [facility] [phone]. ok per thuy to do this and to give his phone number to nurse Britany
[2019-06-17] MEDS ORDERED: POTASSIUM CHLORIDE 10MEQ EA PO NR (13:30)
[2019-06-17] MEDS: LINEZOLID 600 MG TAB PO SCH (16:59)
--- NOTE | 2019-06-17 19:00 | NUR ---
patient discharged, however pending hospice picking machine operator helper arrangement.
--- NOTE | 2019-06-17 19:00 | NUR ---
Received patient from day nurse, patient stable. safety and fall precautions maintained: bed in lowest position and locked, needed items beside bed, call bush close to patient.
[2019-06-17] MEDS: CEFTRIAXONE SOD 1 GRAM/0.9% SOD CHL 50ML BAG IV SCH (21:11)
[2019-06-17] MEDS: MULTIVITAMINS- 12 INJECTION 10 ML in SODIUM CHLORIDE 0.9% 1000ML 1,000 ML IV SCH (22:06)
[2019-06-18] VITALS (8 sets, daily range): BP systolic 131–163; BP diastolic 64–76
[2019-06-18] MEDS: LEVOTHYROXINE SODIUM 50 MCG TAB PO SCH (06:13)
[2019-06-18] MEDS: IPRATROPIUM BROMIDE 0.02% 2.5 ML NEB NEB SCH ×2 (07:00→20:20)
[2019-06-18] MEDS: INSULIN REGULAR, HUMAN 100 UNIT/1 ML 3ML VIAL SQ SCH ×4 (07:30→21:12)
[2019-06-18] MEDS: PEG OP SCH ×3 (08:41→21:54)
[2019-06-18] MEDS: PROPYLENE GLYCOL OP SCH ×3 (08:41→21:54)
[2019-06-18] MEDS: CARBIDOPA/LEVODOPA 25/100 TAB PO SCH ×3 (09:06→21:54)
[2019-06-18] MEDS: DOCUSATE SODIUM 100 MG CAP PO SCH (09:06)
[2019-06-18] MEDS: SUCRALFATE 1 GM/10 ML SUSP PO SCH ×4 (09:06→21:54)
[2019-06-18] MEDS: MULTIVITAMINS/MINERALS TAB PO SCH (09:06)
[2019-06-18] MEDS: BALSAM PERU/CASTOR OIL 60 GM OINT...G. TP SCH (09:06)
[2019-06-18] MEDS: DOXYCYCLINE HYCLATE TABLET 100 MG TAB PO SCH (09:06)
[2019-06-18] MEDS: LINEZOLID 600 MG TAB PO SCH ×2 (09:06→17:01)
[2019-06-18] MEDS: HEPARIN SOD (PORCINE) 5,000 UNIT/ML VIAL SC SCH ×2 (09:07→21:21)
--- NOTE | 2019-06-18 09:09 | NUR ---
VENELEX PLACED TO BOTTOM WOUND ALONG WITH ALLEYVN PAD PT TURN Q2 GIVEN MORNING MEDS WITH VANILLA PUDDING PT DID NOT WANT TO EAT BREAKFAST
[2019-06-18] MEDS ORDERED: HYDRALAZINE HCL 20 MG/ML VIAL IV PRN (11:45)
--- NOTE | 2019-06-18 12:14 | Discharge Summary ---
HOSPITAL COURSE: See also ER notes and history and physical. The patient was admitted, febrile from a convalescent center. Database was obtained and monitored. The patient's pre-existing illnesses were evaluated and treated and her workup with fever initially revealed negative blood cultures and negative urine culture. Chest x-ray revealed pulmonary infiltrates. The patient was treated with pulmonary therapy and intravenous and oral antibiotics. Serial chest x-rays were monitored. The final chest x-ray revealed significant improvement. Initial urine culture negative. Followup urine culture with enterococcus, which is being treated. A breast mass 6-7 cm on the left was found on exam and imaging requested. Same pending. The patient was DNR prior to admission and the family is discussing the case with the hospice. She will return to her convalescent center. Prognosis is guarded. See also EMR and serial orders. Admission white blood cell count 15,740. White count on June 16 was 12,433. WBC was 11,610 on June 17. Hemoglobin 10 on 06/12/2019 and remained there. Platelet counts normal. Urinalysis initially with 6-10 white cells, nitrite positive, leukocyte esterase trace on June 10. Followup UA was negative on dipstick, although sediment did reveal many bacteria. The patient has a history of recurrent UTIs. Flu antigens negative. Serum chemistries monitored. The patient is diabetic and blood sugars were monitored and managed medically. Intermittent hypokalemia was repleted. Modified barium swallow was negative for aspiration. The patient experienced a stage II presacral bedsore, which was treated medically. She was continued on her prior to admission levothyroxine and TSH was reported at 5.3. The patient has a history of Parkinson's disease. She was continued on her carbidopa/levodopa. History includes severe spinal stenosis. She has had prior back surgery, but has remained unable to ambulate for several years. She has generalized severe rigidity with extremities fixed in extension. FINAL IMPRESSION: 1. Acute febrile illness with pulmonary infiltrates, improving, on serial chest x-ray. Acute pneumonia acquired at her convalescent center. 2. Chronic multiple severe medical illnesses including chronic dementia, Parkinson disease, spinal stenosis with inability to ambulate for several years, presacral bedsore, hypothyroidism, type 2 diabetes mellitus, and recurrent urinary tract infection. 3. Prognosis is poor. Family is discussing hospice. See also final med list. We will discuss medications with the patient's convalescent center upon her arrival there. MD JULIAN Thakkar/KAI /[id number]
--- NOTE | 2019-06-18 12:27 | NUR ---
Called [facility] [phone] and requested to speak to on-call nurse to follow up on referral from 06/17/19. Awaiting return call.
--- NOTE | 2019-06-18 13:11 | NUR ---
Britany SEALS w/ [facility] called. Notified her that Calli SEALS stated Dr. Lawton expected pt to dc yesterday. Britany SEALS stated she would make arrangements and call CM back. Britany electron microprobe operator nurse cell number [phone]
--- NOTE | 2019-06-18 14:39 | NUR ---
FLEX spoke again with Britany [phone] and gave her the number to [facility], and the name of pt nurse: Calli SEALS. Karson stated she is waiting to hear back from her social workers who are getting things in order to get pt home today. [facility]: [phone] Britany (on-call nurse) cell: [phone] Anticipate discharge home on home hospice later today
--- NOTE | 2019-06-18 15:05 | NUR ---
Visit made by the Spiritual Care Department Pastoral Visitor, Joey Sullivan. PV provided pastoral presence, hospitality, and supportive listening. Pastoral Visitor informed pt/family of the scope of [employer] and availability. SHERIN COPPOLA Logistics Associate Spiritual Care Department O: [phone] Pager: [phone] ([phone] number calling from)
[2019-06-18] MEDS: MULTIVITAMINS- 12 INJECTION 10 ML in SODIUM CHLORIDE 0.9% 1000ML 1,000 ML IV SCH (17:03)
--- NOTE | 2019-06-18 17:04 | NUR ---
RECEIVED A CALL FROM [facility] TO WILL COME TALK TO PT AND FAMILY TOMORROW AT 1300 FOR TRANSFER BACK TO [facility] UNTIL THEN
--- NOTE | 2019-06-18 19:20 | NUR ---
RECEIVED REPORT FROM PREVIOUS NURSE. CALL LIGHT WITHIN REACH. PATIENT IN BED.
[2019-06-18] MEDS: CEFTRIAXONE SOD 1 GRAM/0.9% SOD CHL 50ML BAG IV SCH (21:54)
[2019-06-19] VITALS: BP 143/63
[2019-06-19 04:50] VITALS: BP 178/84
[2019-06-19] MEDS: LEVOTHYROXINE SODIUM 50 MCG TAB PO SCH (05:55)
[2019-06-19] MEDS: PROPYLENE GLYCOL OP SCH (06:35)
[2019-06-19] MEDS: PEG OP SCH (06:35)
--- NOTE | 2019-06-19 07:10 | NUR ---
GAVE REPORT TO ONCOMING NURSE. CALL LIGHT WITHIN REACH. PATIENT IN BED.
[2019-06-19] MEDS: IPRATROPIUM BROMIDE 0.02% 2.5 ML NEB NEB SCH (07:14)
[2019-06-19] MEDS: INSULIN REGULAR, HUMAN 100 UNIT/1 ML 3ML VIAL SQ SCH ×2 (07:30→12:36)
[2019-06-19 08:00] VITALS: BP 153/69
[2019-06-19 08:02] VITALS: BP 153/69
--- NOTE | 2019-06-19 08:14 | NUR ---
called to confirm pt returning to [facility] today [facility], , intake is not in office yet and will return call.
[2019-06-19] MEDS: SUCRALFATE 1 GM/10 ML SUSP PO SCH ×2 (09:07→12:36)
[2019-06-19] MEDS: DOXYCYCLINE HYCLATE TABLET 100 MG TAB PO SCH (09:07)
[2019-06-19] MEDS: CARBIDOPA/LEVODOPA 25/100 TAB PO SCH (09:07)
[2019-06-19] MEDS: BALSAM PERU/CASTOR OIL 60 GM OINT...G. TP SCH (09:07)
[2019-06-19] MEDS: DOCUSATE SODIUM 100 MG CAP PO SCH (09:07)
[2019-06-19] MEDS: LINEZOLID 600 MG TAB PO SCH (09:07)
[2019-06-19] MEDS: HEPARIN SOD (PORCINE) 5,000 UNIT/ML VIAL SC SCH (09:07)
[2019-06-19] MEDS: MULTIVITAMINS/MINERALS TAB PO SCH (09:07)
[2019-06-19 11:47] VITALS: BP 140/73
--- NOTE | 2019-06-19 11:53 | NUR ---
CM received call from pt's son Juan Pablo Barlow [phone]. Stated that he has just finished signing paperwork with [facility]. Also received call from Flako with [facility], . States they are having equipment delivered to [facility] around 1215 - 1230. Transport set up with [employer] at 1300. CM called pt's son Juan Pablo and updated him on transport time. IMM letter explained to Juan Pablo. He verbalized understanding. Signed copy placed in chart. Copy left in pt's room. BOZENA Patiño was notified on transportation time.
--- NOTE | 2019-06-19 12:40 | NUR ---
Spoke with Latrice with admissions at [facility]. Informed her pt returning on hospice today with [facility]. Faxed clinicals to [phone]. Verified with Latrice that they have received clinicals and pt can return to her room at [facility]. RM [address] Lawton's care. [address] [place] [address] OOH-DNR on chart.
--- NOTE | 2019-06-19 13:00 | NUR ---
Pt dsicharged to [facility] under hospice care. 0 s/s of acute distress noted. Denies any pain at this time. Family at bedside and is aware of discharge. Report called to nurse Cerna at [facility].
== END 2019-06-19 12:51 | disposition hospice, inpatient (51) | DRG 194 ==
LOC: ER 18:25 → ERHOLD 21:03 → MED/SURG2 22:43 → OBSVTOIN 06-12 13:35
PROVIDERS: ADMIT Internal Medicine; ATTEND Internal Medicine
DX: J18.1 Lobar pneumonia, unspecified organism (principal); N39.0 Urinary tract infection, site not specified; I47.2 Ventricular tachycardia; G93.40 Encephalopathy, unspecified; Z66 Do not resuscitate; L89.152 Pressure ulcer of sacral region, stage 2; R13.10 Dysphagia, unspecified; M48.00 Spinal stenosis, site unspecified; B95.2 Enterococcus as the cause of diseases classified elsewhere; E87.6 Hypokalemia; F03.90 Unspecified dementia, unspecified severity, without behavioral disturbance, psychotic disturbance, mood disturbance, and anxiety; E11.9 Type 2 diabetes mellitus without complications; E03.9 Hypothyroidism, unspecified; G20 Parkinson's disease; Y95 Nosocomial condition; F32.9 Major depressive disorder, single episode, unspecified; K21.9 Gastro-esophageal reflux disease without esophagitis
CPT/HCPCS: 36415; 71045; 71046; 74230; 76700; 80048; 80053; 81001; 82550; 82553; 82948; 83036; 83605; 83880; 84443; 84484; 85014; 85018; 85025; 87040; 87086; 87186; 87400; 93005; 93306; 94640; 97139; 99284; G0378; J0456; J0696; J1580; J1644; J3480; J7030; J7042; J7050; J7799

== ENCOUNTER → 2020-04-09 | Day surgery (SDC) | payer MEDICARE, OTHER ==
[~2020-04-09] MED LIST changes: +ARTIFICIAL TEAR15 ML OU; +HUMALOG100 UNIT/1 SQ; +KETAMINE HCL INJ 50 MG/ML 10 ML VIAL ONE; +LEVOFLOXACIN 500MG/D5W 100ML 100 ML IV ONE; +LIDOCAINE HCL 2% LOCAL INJ 5 ML SDV VIAL INJ ONE; +POTASSIUM CHLO10 ME1 PO; +PRO-STAT MAX L887 ML PO; +PROPOFOL IV EMULSION 10 MG/ML 20 ML VIAL ONE; +SINEMET 25-1001 EACH PO
[2020-04-09 11:25] VITALS: BP 172/85
--- NOTE | 2020-04-09 14:50 | Operative Report ---
DATE OF PROCEDURE: 04/09/2020 SURGEON: Dawson Pan MD PREOPERATIVE DIAGNOSIS: Necrotic ulcer of the sacrum and bilateral hips. POSTOPERATIVE DIAGNOSIS: Necrotic ulcer of the sacrum and bilateral hips. PROCEDURE: Excisional debridement of sacral ulcer, skin, subcutaneous tissue, 100 square cm. Excisional debridement right hip ulcer, skin and subcutaneous tissue and muscle 150 square cm. Excisional debridement of left hip ulcer, skin and subcutaneous tissue and muscle 120 square cm. BATTERY TESTER FIELD: None. ANESTHESIA: General. INDICATIONS AND FINDINGS: The 84-year-old female resident of senior living presented with complaints of necrotic ulcers in both hips and the sacrum. At surgery, there was necrotic tissue in all ulcers. The sacral ulcer involved skin and subcutaneous tissue. Each hip ulcer involved skin and subcutaneous tissue and muscle with the sizes as noted above. TECHNIQUE: After adequate general anesthesia, the patient initially in the left side down position, the right hip and sacral areas were prepped and draped in a sterile fashion with Betadine solution. Right hip ulcer was debrided of necrotic tissue using electrocautery. The involved skin, subcutaneous tissue and muscle areas about 15 x 10 cm was all debrided back to healthy tissue. There was some erosion of bone noted. Hemostasis achieved with electrocautery. The wound was irrigated with saline and then dressed with a dry sterile dressing sacral area. The area of debridement was about 10 x 10 cm involving skin and subcutaneous tissue. Using electrocautery, the necrotic tissue was excised back to healthy bleeding tissue. Hemostasis was achieved with electrocautery. The wound was irrigated with saline, then dressed open with a dry sterile dressing. After this was completed, the patient was placed on the right side down position and the left hip ulcer prepped and draped in a sterile fashion with Betadine solution. Necrotic tissue was excised. The skin and subcutaneous tissue and muscle back to healthy bleeding tissue with the areas of about 10 x 12 cm. Hemostasis was achieved with electrocautery. Wound was irrigated with saline, then dressed open with a dry sterile dressing. The patient tolerated the procedure well. Estimated blood loss was 75 mL. There were no complications. All counts were correct. The patient was taken to the recovery room in satisfactory condition. MD ASIF Hurd/MODL /[id number] cc: Ezequiel Lawton MD
== END | disposition home or self-care (01) ==
LOC: OR 06:03
PROVIDERS: ATTEND Surgery
DX: L97.823 Non-pressure chronic ulcer of other part of left lower leg with necrosis of muscle (principal); L98.428 Non-pressure chronic ulcer of back with other specified severity; L97.816 Non-pressure chronic ulcer of other part of right lower leg with bone involvement without evidence of necrosis; E11.9 Type 2 diabetes mellitus without complications; G20 Parkinson's disease; F03.90 Unspecified dementia, unspecified severity, without behavioral disturbance, psychotic disturbance, mood disturbance, and anxiety; Z88.0 Allergy status to penicillin; Z88.2 Allergy status to sulfonamides; Z79.4 Long term (current) use of insulin
CPT/HCPCS: 11042; 11043; 11045 ×4; 11046 ×4; 87071; 87075; 87186; 87205; 88302; 93005; J1956; J2001; J2704; 88304